=== PATIENT | female | born 1950 | race Caucasian/White ===

== ENCOUNTER 2016-11-02 13:06 | Emergency (ER) | payer MEDICARE, BC ==
[2016-11-02 13:20] VITALS: BP 185/94
--- NOTE | 2016-11-02 14:05 | ED.ADGEN ---
Past History Past Medical History: Diabetes, Hypertension, Other Past Surgical History: Angioplasty, Tubal ligation, Other Alcohol Use: None Drug Use: None Adult General Chief Complaint Chief Complaint Low back pain HPI HPI Patient is a 66-year-old female presents with history of chronic intermittent back pain who presents with persistent left lower back pain radiating to left medial thigh. Pain started gradually last night and has progressed. Pain is worse with palpation, trunk rotation and movement. Ibuprofen taken last night with limited relief. Denies injury. Review of Systems Review of Systems ROS as per HPI Physical Exam Physical Exam Constitutional: Well developed, well nourished, no acute distress, non-toxic appearance. Back: No midline back pain, tenderness or swelling. Lower lumbar paravertebral/ sacroiliac pain tenderness reproducing symptoms. Negative SLR tests. Neurologic: Lower extremities, no motor weakness or loss of sensation. Current Patient Data Vital Signs Vital Signs Date Time Temp Pulse Resp B/P (MAP) Pulse Ox O2 Delivery O2 Flow Rate FiO2 11/02/16 13:20 97.6 83 16 98 Room Air EKG EKG [] Radiology/Procedures Radiology/Procedures [] Course & Med Decision Making Course & Med Decision Making Pertinent Labs and Imaging studies reviewed. (See chart for details) [Reproducible musculoskeletal pain with radiculopathy. No motor sensory deficits. Pain addressed and improved. PCP f/u. ] Final Impression Final Impression [1. Acute lumbar radiculopathy] Problems: Dragon Disclaimer Dragon Disclaimer This electronic medical record was generated, in whole or in part, using a voice recognition dictation system. SUSI MONROE DO Nov 02, 2016 14:05
[2016-11-02] MEDS ORDERED: oxyCODONE/APAP 10/325 1 TAB TABLET PO ONE (14:15)
[2016-11-02] MEDS ORDERED: ONDANSETRON ODT 4 MG TAB.RAPDIS PO ONE (14:15)
[2016-11-02] MEDS ORDERED: IBUPROFEN 400 MG TABLET. PO ONE (14:15)
[2016-11-02] MEDS ORDERED: KETOROLAC 60 MG/2 ML VIAL. IM ONE (15:15)
== END 2016-11-02 15:44 | disposition home or self-care (01) ==
LOC: ER 13:06
DX: M54.16 Radiculopathy, lumbar region (principal); I10 Essential (primary) hypertension; E11.9 Type 2 diabetes mellitus without complications
CPT/HCPCS: 96372; 99284; J1885; Q0162

== ENCOUNTER 2017-06-09 12:38 | Inpatient (IN) | payer MEDICARE, BC ==
[2017-06-09] VITALS (9 sets, daily range): BP systolic 139–251; BP diastolic 63–117
[~2017-06-09] VITALS: Ht 160 cm; Wt 58.1 kg
--- NOTE | 2017-06-09 13:25 | RAD ---
CT head without contrast 06/09/2017 Clinical indication: Code stroke. Altered mental status. Comparison: None. Technique: Multiple CT images of the head were obtained without contrast PQRS Compliance Statement: One or more of the following individualized dose reduction techniques were utilized for this examination: 1. Automated exposure control 2. Adjustment of the mA and/or kV according to patient size 3. Use of iterative reconstruction technique Findings: There is mild prominence of the ventricles and subarachnoid spaces compatible with mild generalized cerebral atrophy. No midline shift. The basal cisterns are patent. No acute intracranial hemorrhage or extra-axial fluid collection. The mastoid air cells and visualized paranasal sinuses are well aerated. Impression: 1. No acute intracranial hemorrhage. 2. Mild generalized cerebral atrophy.
--- NOTE | 2017-06-09 13:26 | RAD ---
Single view chest 06/09/2017 Clinical indication: Altered mental status. Comparison: None. Findings: Cardiac and mediastinal silhouettes are unremarkable. Mild bibasilar atelectasis. No pleural effusion, pneumothorax or focal consolidation. There are surgical clips overlying the left lower neck level. Impression: Mild bibasilar atelectasis without evidence of CHF or consolidating pneumonia.
[2017-06-09 13:46] LABS: BASO % 1 % (0-3); EOS # 0.2 x10^3/uL (0.0-0.7); EOS % 3 % (0-3); HEMATOCRIT 45.9 % (36.0-47.0); HEMOGLOBIN 15.5 g/dL (12.0-15.5); LYMPH # 1.1 x10^3/uL (1.0-4.8); LYMPH % 20 % (24-48); MEAN CORPUSCULAR HEMOGLOBIN 31 pg (25-35); MEAN CORPUSCULAR HGB CONC 34 g/dL (31-37); MEAN CORPUSCULAR VOLUME 93 fL (79-100); MONO # 0.5 x10^3/uL (0.0-1.1); MONO % 9 % (0-9); NEUT # 3.7 x10^3uL (1.8-7.7); NEUT % 68 % (31-73); PLATELET COUNT 191 x10^3/uL (140-400); RED BLOOD COUNT 4.93 x10^6/uL (3.50-5.40); WHITE BLOOD COUNT 5.5 x10^3/uL (4.0-11.0)
[2017-06-09 13:53] LABS: ALBUMIN/GLOBULIN RATIO 1.1 (1.0-1.7); CREATININE 1.9 mg/dL (0.6-1.0); GFR 26.3; POTASSIUM 4.3 mmol/L (3.5-5.1); TOTAL BILIRUBIN 0.6 mg/dL (0.2-1.0); TOTAL PROTEIN 7.7 g/dL (6.4-8.2)
[2017-06-09] MEDS ORDERED: METOPROLOL TARTRATE 5 MG/5 ML VIAL. IV ONE ×2 (14:00→15:30)
--- NOTE | 2017-06-09 14:00 | EKG ---
[address] [address] Test Date: 2017-06-09 Test Time: 13:32:40 Pat Name: AUSTIN RAZA Department: Room: Gender: F Interlocking Pavement Installer: SULEMA : 1950 Requested By: SARA ARAUJO Order Number: [id number] Reading MD: Vitor Johnson Measurements Intervals Vanduser Rate: 73 P: 126 VT: 152 QRS: 98 QRSD: 98 T: 23 QT: 394 QTc: 438 Interpretive Statements SINUS RHYTHM RIGHTWARD AXIS Electronically Signed On 06-09-2017 16:53:22 MOTTLE LAY UP OPERATOR by Vitor Johnson
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
[2017-06-09] MEDS ORDERED: IV NORMAL SALINE 1,000ML 1,000 ML IV SCH (14:21)
[2017-06-09 14:44] LABS: AMPHETAMINE/METHAMPHETAMINE NEG (NEG); BARBITURATES NEG (NEG); BENZODIAZEPINES NEG (NEG); CANNABINOIDS NEG (NEG); COCAINE NEG (NEG); METHADONE NEG (NEG); OPIATES NEG (NEG); PHENCYCLIDINE NEG (NEG)
[2017-06-09] MEDS ORDERED: INSULIN REGULAR 100 UNIT/ML 10ML VIAL. IV ONE (14:45)
[2017-06-09] MEDS ORDERED: ONDANSETRON PF 4 MG/2 ML VIAL. IV ONE (15:45)
[2017-06-09] MEDS ORDERED: ACETAMINOPHEN 500 MG TABLET PO ONE (15:45)
[2017-06-09 15:46] LABS: BACTERIA,URINE 0 /HPF (0-FEW); BILIRUBIN,URINE NEG (NEG); CLARITY,URINE CLEAR; COLOR,URINE YELLOW; GLUCOSE,URINE 500 mg/dL (NEG); NITRITE,URINE NEG (NEG); RBC,URINE 0 /HPF (0-2); SQUAMOUS EPITHELIAL CELL,UR OCC /LPF; UROBILINOGEN,URINE 0.2 mg/dL (0.2 mg/dL); WBC,URINE OCC /HPF (0-4)
[2017-06-09] MEDS ORDERED: ONDANSETRON PF 4 MG/2 ML VIAL. IV PRN ×2 (16:45→18:15)
[2017-06-09] MEDS ORDERED: INSULIN REGULAR 150 UNIT in 0.9 % SODIUM CHLORIDE 150ML 150 ML IV ONE (17:00)
--- NOTE | 2017-06-09 18:26 | PDOC ---
Exam Note: Christiano Note: Please also refer to the separate dictated note~for this date of service dictated separately.~Patient seen individually. Discussed the patient with Nursing staff reviewed the chart.~Reviewed interim history and current functioning. Reviewed vital signs,~Labs/ Radiology~and current medications noted below. Continue current treatment with the changes noted in the dictated addendum note Assessment: Vital Signs: Vital Signs Date Time Temp Pulse Resp B/P (MAP) Pulse Ox O2 Delivery O2 Flow Rate FiO2 06/09/17 18:04 98.3 72 18 223/103 (143) 93 Room Air Labs: Laboratory Tests Test 06/09/17 13:18 06/09/17 14:20 06/09/17 16:59 06/09/17 18:19 White Blood Count 5.5 x10^3/uL (4.0-11.0) Red Blood Count 4.93 x10^6/uL (3.50-5.40) Hemoglobin 15.5 g/dL (12.0-15.5) Hematocrit 45.9 % (36.0-47.0) Mean Corpuscular Volume 93 fL (79-100) Mean Corpuscular Hemoglobin 31 pg (25-35) Mean Corpuscular Hemoglobin Concent 34 g/dL (31-37) Red Cell Distribution Width 14.0 % (11.5-14.5) Platelet Count 191 x10^3/uL (140-400) Neutrophils (%) (Auto) 68 % (31-73) Lymphocytes (%) (Auto) 20 % (24-48) L Monocytes (%) (Auto) 9 % (0-9) Eosinophils (%) (Auto) 3 % (0-3) Basophils (%) (Auto) 1 % (0-3) Neutrophils # (Auto) 3.7 x10^3uL (1.8-7.7) Lymphocytes # (Auto) 1.1 x10^3/uL (1.0-4.8) Monocytes # (Auto) 0.5 x10^3/uL (0.0-1.1) Eosinophils # (Auto) 0.2 x10^3/uL (0.0-0.7) Basophils # (Auto) 0.0 x10^3/uL (0.0-0.2) Prothrombin Time 10.1 SEC (9.4-11.4) Prothrombin Time INR 1.0 (0.9-1.1) PTT 21 SEC (23-33) L Sodium Level 132 mmol/L (136-145) L Potassium Level 4.3 mmol/L (3.5-5.1) Chloride Level 91 mmol/L (98-107) L Carbon Dioxide Level 31 mmol/L (21-32) Anion Gap 10 (6-14) Blood Urea Nitrogen 20 mg/dL (7-20) Creatinine 1.9 mg/dL (0.6-1.0) H Estimated GFR (Cockcroft-Gault) 26.3 BUN/Creatinine Ratio 11 (6-20) Glucose Level 767 mg/dL (70-99) *H Lactic Acid Level 1.8 mmol/L (0.4-2.0) Calcium Level 10.0 mg/dL (8.5-10.1) Total Bilirubin 0.6 mg/dL (0.2-1.0) Aspartate Amino Transferase (AST) 26 U/L (15-37) Alanine Aminotransferase (ALT) 48 U/L (14-59) Alkaline Phosphatase 204 U/L (46-116) H Ammonia < 10 mcmol/L (11-34) L Creatine Kinase 44 U/L (26-192) Troponin I Quantitative 0.028 ng/mL (0-0.055) Total Protein 7.7 g/dL (6.4-8.2) Albumin 4.0 g/dL (3.4-5.0) Albumin/Globulin Ratio 1.1 (1.0-1.7) Ethyl Alcohol Level < 10 mg/dL (0-10) Urine Collection Type Unknown Urine Color Yellow Urine Clarity Clear Urine pH 7.0 Urine Specific Magnet 1.015 Urine Protein 30 mg/dl (NEG-TRACE) Urine Glucose (UA) 500 mg/dL (NEG) Urine Ketones (Stick) Neg mg/dL (NEG) Urine Blood Neg (NEG) Urine Nitrite Neg (NEG) Urine Bilirubin Neg (NEG) Urine Urobilinogen Dipstick 0.2 mg/dL (0.2 mg/dL) Urine Leukocyte Esterase Neg (NEG) Urine RBC 0 /HPF (0-2) Urine WBC Occ /HPF (0-4) Urine Squamous Epithelial Cells Occ /LPF Urine Bacteria 0 /HPF (0-FEW) Urine Opiates Screen Neg (NEG) Urine Methadone Screen Neg (NEG) Urine Barbiturates Neg (NEG) Urine Phencyclidine Screen Neg (NEG) Urine Amphetamine/Methamphetamine Neg (NEG) Urine Benzodiazepines Screen Neg (NEG) Urine Cocaine Screen Neg (NEG) Urine Cannabinoids Screen Neg (NEG) Urine Ethyl Alcohol Neg (NEG) Glucose (Fingerstick) 430 mg/dL (70-99) H 372 mg/dL (70-99) H Current Medications: Meds: Current Medications Metoprolol Tartrate (Lopressor Vial) 5 mg 1X ONCE IV Last administered on 06/09at 14:15; Start 06/09/17 at 14:00; Stop 06/09/17 at 14:01; Status DC Sodium Chloride 1,000 ml @ 1,000 mls/hr Q1H IV Last administered on 06/09/17at 15:44; Start 06/09/17 at 14:21; Stop 06/09/17 at 15:20; Status DC Insulin Human Regular (NovoLIN R) 20 unit 1X ONCE IV Last administered on 06/09at 15:45; Start 06/09/17 at 14:45; Stop 06/09/17 at 14:46; Status DC Metoprolol Tartrate (Lopressor Vial) 5 mg 1X ONCE IV Last administered on 06/09at 15:43; Start 06/09/17 at 15:30; Stop 06/09/17 at 15:31; Status DC Ondansetron HCl (Zofran) 4 mg 1X ONCE IV Last administered on 06/09/17at 16:03 ; Start 06/09/17 at 15:45; Stop 06/09/17 at 15:46; Status DC Acetaminophen (Tylenol) 1,000 mg 1X ONCE PO Last administered on 06/09/17at 16: 03; Start 06/09/17 at 15:45; Stop 06/09/17 at 15:46; Status DC Insulin Human Regular 150 unit/ Sodium Chloride 151.5 ml @ 0 mls/hr 1X ONCE IV ; Start 06/09/17 at 17:00; Stop 06/09/17 at 17:01; Status DC Ondansetron HCl (Zofran) 4 mg PRN Q4HRS PRN IV NAUSEA/VOMITING; Start 06/09/17 at 16:45; Stop 06/09/17 at 18:24; Status DC Ondansetron HCl (Zofran) 4 mg PRN Q8HRS PRN IV NAUSEA/VOMITING; Start 06/09/17 at 18:15 Sodium Chloride 1,000 ml @ 0 mls/hr Q0M IV ; Start 06/09/17 at 18:03 Metoprolol Tartrate (Lopressor Vial) 5 mg Q6HRS IV ; Start 06/09/17 at 18:30 Nicardipine HCl 50 mg/Sodium Chloride 270 ml @ 0 mls/hr CONT PRN IV SEE I/O RECORD; Start 06/09/17 at 18:15 I have reviewed the current psychotropics carefully including drug interactions. Risk benefit ratio favors no change other than as noted in my dictated progress note. Diagnosis: Problems: (1) Mild cognitive impairment (2) Anxiety disorder JORGE SLATER MD Jun 09, 2017 18:26
[2017-06-09] MEDS: IV NORMAL SALINE 1,000ML 1,000 ML IV SCH ×2 (18:33→20:30)
[2017-06-09] MEDS: METOPROLOL TARTRATE 5 MG/5 ML VIAL. IV SCH (18:33)
[2017-06-09] MEDS ORDERED: LORazepam 2 MG/ML VIAL ONE (20:13)
[2017-06-09] MEDS ORDERED: LORazepam 2 MG/ML VIAL IV PRN (20:45)
[2017-06-10] VITALS (24 sets, daily range): BP systolic 114–175; BP diastolic 55–86
[2017-06-10] MEDS: METOPROLOL TARTRATE 5 MG/5 ML VIAL. IV SCH ×5 (00:09→18:47)
[2017-06-10] MEDS: IV NORMAL SALINE 1,000ML 1,000 ML IV SCH (00:09)
[2017-06-10] MEDS: IV DEXTROSE 5 %-0.45 % NACL 1,000 ML IV SCH ×4 (02:49→18:39)
[2017-06-10 06:20] LABS: BASO % 0 % (0-3); EOS % 0 % (0-3); HEMATOCRIT 43.8 % (36.0-47.0); HEMOGLOBIN 14.9 g/dL (12.0-15.5); LYMPH # 0.8 x10^3/uL (1.0-4.8); LYMPH % 7 % (24-48); MEAN CORPUSCULAR HEMOGLOBIN 31 pg (25-35); MEAN CORPUSCULAR HGB CONC 34 g/dL (31-37); MEAN CORPUSCULAR VOLUME 92 fL (79-100); MONO # 0.5 x10^3/uL (0.0-1.1); MONO % 4 % (0-9); NEUT # 10.2 x10^3uL (1.8-7.7); NEUT % 89 % (31-73); PLATELET COUNT 181 x10^3/uL (140-400); RED BLOOD COUNT 4.78 x10^6/uL (3.50-5.40); RED CELL DISTRIBUTION WIDTH 14.4 % (11.5-14.5); WHITE BLOOD COUNT 11.5 x10^3/uL (4.0-11.0)
[2017-06-10 06:30] LABS: ALBUMIN 3.6 g/dL (3.4-5.0); ALBUMIN/GLOBULIN RATIO 1.1 (1.0-1.7); CALCIUM 8.9 mg/dL (8.5-10.1); CREATININE 1.5 mg/dL (0.6-1.0); GFR 34.5; MAGNESIUM 1.6 mg/dL (1.8-2.4); POTASSIUM 3.6 mmol/L (3.5-5.1); TOTAL BILIRUBIN 0.5 mg/dL (0.2-1.0)
[2017-06-10] MEDS ORDERED: KETOROLAC 30 MG/ML VIAL. IV PRN (07:15)
[2017-06-10] MEDS ORDERED: MAGNESIUM SULFATE 2GM 50 ML IV ONE (07:45)
[2017-06-10] MEDS ORDERED: ACETAMINOPHEN 650 MG SUPP.RECT. PR ONE (10:00)
--- NOTE | 2017-06-10 12:27 | RAD ---
CT of the head without contrast, 06/10/2017: History: Altered mental status The patient became combative when placed on the CT table. The study is therefore compromised by patient motion artifacts. Comparison is made to a study from 06/09/2017. The ventricles are within normal limits in size. There is no shift of the midline structures. There is no evidence of acute intracranial hemorrhage or mass effect. There is mild cerebral atrophy. IMPRESSION: Limited exam demonstrating no acute intracranial abnormality. PQRS Compliance Statement: One or more of the following individualized dose reduction techniques were utilized for this examination: 1. Automated exposure control 2. Adjustment of the mA and/or kV according to patient size 3. Use of iterative reconstruction technique
--- NOTE | 2017-06-10 12:33 | RAD ---
CT of the chest without contrast, 06/10/2017: History: Leukocytosis. Noncontrast scans were obtained. The study is compromised by patient motion artifact. Minimal peripheral opacities in both lower lobes are compatible with dependent atelectasis. There is a calcified granuloma in the right upper lobe medially. No pulmonary mass or dense consolidation is seen. There is moderate calcific plaquing of the thoracic aorta without evidence of aneurysm. Scattered coronary artery calcifications are present. The heart is not enlarged. No mediastinal adenopathy is seen. The liver is of lower than normal density suggesting fatty change. IMPRESSION: 1. Mild dependent atelectasis in both lungs. 2. Calcific plaquing of the aorta and coronary arteries. 3. Hepatic steatosis PQRS Compliance Statement: One or more of the following individualized dose reduction techniques were utilized for this examination: 1. Automated exposure control 2. Adjustment of the mA and/or kV according to patient size 3. Use of iterative reconstruction technique
[2017-06-10 13:09] LABS: INFLUENZA A PATIENT NEGATIVE (NEGATIVE); INFLUENZA B PATIENT NEGATIVE (NEGATIVE)
[2017-06-10 13:34] LABS: FREE T4 1.21 ng/dL (0.76-1.46); THYROID STIM HORMONE (TSH) 0.974 uIU/mL (0.358-3.740)
[2017-06-10 14:08] LABS: BASO % 1 % (0-3); EOS % 0 % (0-3); HEMOGLOBIN 14.4 g/dL (12.0-15.5); LYMPH # 1.2 x10^3/uL (1.0-4.8); LYMPH % 12 % (24-48); MEAN CORPUSCULAR HEMOGLOBIN 31 pg (25-35); MEAN CORPUSCULAR HGB CONC 34 g/dL (31-37); MEAN CORPUSCULAR VOLUME 91 fL (79-100); MONO % 10 % (0-9); NEUT # 8.4 x10^3uL (1.8-7.7); NEUT % 78 % (31-73); PLATELET COUNT 179 x10^3/uL (140-400); RED BLOOD COUNT 4.64 x10^6/uL (3.50-5.40); RED CELL DISTRIBUTION WIDTH 14.2 % (11.5-14.5); WHITE BLOOD COUNT 10.7 x10^3/uL (4.0-11.0)
[2017-06-10] MEDS ORDERED: INSULIN REGULAR 150 UNIT in 0.9 % SODIUM CHLORIDE 150ML 150 ML IV PRN (14:15)
[2017-06-10 14:20] LABS: ALBUMIN 3.1 g/dL (3.4-5.0); ALBUMIN/GLOBULIN RATIO 0.9 (1.0-1.7); CALCIUM 8.8 mg/dL (8.5-10.1); CREATININE 1.6 mg/dL (0.6-1.0); GFR 32.1; TOTAL BILIRUBIN 0.5 mg/dL (0.2-1.0); TOTAL PROTEIN 6.4 g/dL (6.4-8.2)
[2017-06-10] MEDS: POTASSIUM CHLORIDE 10MEQ 100 ML IV SCH ×4 (15:21→18:18)
[2017-06-10] MEDS ORDERED: PIPERACILLIN/TAZO IV Push 2.25 GM VIAL. IVP SCH (18:00)
[2017-06-10] MEDS ORDERED: PIPERACILLIN/TAZOBACTAM 2.25 GM in IV NORMAL SALINE 50ML 50 ML IV SCH (18:00)
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
--- NOTE | 2017-06-11 23:54 | PN ---
DATE: 06/10/2017 This is a late entry for 06/10/2017 covers elements not covered in my initial note of 06/10/2017. SUBJECTIVE: The patient seen in ICU bed for evening of 06/10/2017. Discussed with nursing staff. The patient has been relatively nonresponsive and question is whether she has had a CVA. Dr. Albrecht is following her. REVIEW OF SYSTEMS: From a psychiatric standpoint, there is nothing specific to address and it seems more that the medical issues needs to be addressed including possibility of CVA. IMPRESSION: Unchanged from initial note. PLAN: No recommendations from a psychiatric standpoint. MAN Clover SLATER MD DR: TICO/kirstin JOB#: [id number] / [id number]
--- NOTE | 2017-06-25 22:17 | DS ---
DATE OF DISCHARGE: 06/10/2017 HOSPITAL COURSE: The patient is a 66-year-old female patient who is followed by Dr. Lilly and who apparently was seen in his office where she was found to be extremely hypertensive with the blood pressure of 240/110. She was also confused and markedly hyperglycemic and therefore, she was taken to the ER by the wheelchair accompanied by [employer]. There, they noted that she was confused, unable to follow commands. Her blood pressure was 240/110. Her blood sugar was more than 800 mg. She was given 5 mg of IV metoprolol twice and her blood pressure came down to 140/90. By the time she arrived to the ICU, she was very restless, agitated with the blood pressure of 210/104. She was basically given Ativan and was started on Cardene drip as well as insulin drip for she was in hyperosmolar nonketotic hyperglycemia. Unfortunately, on the second day, the patient became completely unresponsive and although her blood pressure was much better controlled, her blood sugar was much better controlled, and a decision was made to transfer her to [facility] as the CT scan done at [facility] showed no obvious abnormality and on the day of discharge the patient was continued to be encephalopathic. PHYSICAL EXAMINATION: GENERAL: On the day of discharge, the patient was resting slightly propped up in bed, clearly encephalopathic. She was pale, no jaundice, cyanosis, or thyromegaly. No jugular venous distension. No limb edema. VITAL SIGNS: Her heart rate was 80, blood pressure was 155/67, temperature was 100.3, respiratory rate was 18 and oxygen saturation was 99% on 2 liters of oxygen. HEAD, EYES, EARS, NOSE AND THROAT: Showed normocephalic, atraumatic. NECK: Supple. HEART: Showed normal first and second heart sounds with no gallop, rub, or murmur. CHEST: Clear to auscultation. No crepitation or rhonchi. ABDOMEN: Distended, soft, nontender. No guarding or rigidity. No organomegaly. Hernial orifice is intact. Bowel sounds normal. NEUROLOGIC: She was very lethargic, but arousable. She clearly has difficulty moving her left upper and left lower extremity. LABORATORY DATA: Her lab work on day of discharge showed a white cell count of 10,700, hemoglobin 14.4, hematocrit 42, MCV 91, and platelet count of 179,000. Her chemistry showed that her serum sodium was 139, potassium 3, chloride 103, bicarbonate 24, anion gap of 12, BUN 12, creatinine 1.6, estimated GFR was 32 mL per minute. Her glucose was 174, calcium was 8.8. Total bilirubin, AST, ALT, alkaline phosphatase were normal. Her total protein was 6.4, albumin was 3.1. Her prothrombin time was 10, INR 1, aPTT 21. We went actually blood and urine for culture and sensitivity. These cultures were negative; however, the patient was started on Zosyn and arrangement has been made for her to be admitted to [facility] ICU to arrange for an MRI of the brain as well and to consult the neurology team as she seemed to have right middle cerebral artery territory infarct with left side hemiplegia, hypertensive encephalopathy, hypertensive urgency, and hyperosmolar nonketotic hyperglycemia. She did have left carotid artery stenosis and she underwent carotid artery endarterectomy in 2004 and 2015. ALISON WEBER MD DR: MOOK/kirstin JOB#: [id number] / [id number]
== END 2017-06-10 20:30 | disposition short-term general hospital (02) | DRG 77 ==
LOC: ER 12:38 → ICU 16:50
PROVIDERS: ADMIT Internal Medicine; ATTEND Internal Medicine
DX: I67.4 Hypertensive encephalopathy (principal); E11.00 Type 2 diabetes mellitus with hyperosmolarity without nonketotic hyperglycemic-hyperosmolar coma (NKHHC); E11.22 Type 2 diabetes mellitus with diabetic chronic kidney disease; F01.50 Vascular dementia, unspecified severity, without behavioral disturbance, psychotic disturbance, mood disturbance, and anxiety; E11.65 Type 2 diabetes mellitus with hyperglycemia; I12.9 Hypertensive chronic kidney disease with stage 1 through stage 4 chronic kidney disease, or unspecified chronic kidney disease; I25.10 Atherosclerotic heart disease of native coronary artery without angina pectoris; E78.5 Hyperlipidemia, unspecified; N18.9 Chronic kidney disease, unspecified; F41.9 Anxiety disorder, unspecified; F32.9 Major depressive disorder, single episode, unspecified; G89.29 Other chronic pain; Z79.82 Long term (current) use of aspirin; Z98.51 Tubal ligation status; Z87.891 Personal history of nicotine dependence; Z95.5 Presence of coronary angioplasty implant and graft
CPT/HCPCS: 36415; 70450; 71045; 71250; 80053; 80307; 81001; 82140; 82550; 82947; 83605; 83735; 84439; 84443; 84481; 84484; 85025; 85610; 85730; 87040; 87641; 87804; 93005; 96361; 96374; 96375; 96376; G0480; J1815; J1885; J2060; J2405; J2543; J3475; J3480; J3490; J7050; 99285-25; G0479; J7030

== ENCOUNTER 2017-06-20 18:56 | Inpatient (IN) | payer MEDICARE, BC ==
[~2017-06-20] VITALS: Ht 160 cm; Wt 68.9 kg
--- NOTE | 2017-06-20 19:14 | ED.ADGEN ---
Past History Past Medical History: Diabetes, Hypertension, Other Past Surgical History: Angioplasty, Tubal ligation, Other Alcohol Use: None Drug Use: None Adult General Chief Complaint Chief Complaint " She was here the other day and got transferred to [place] for bad UTI... she got discharge 3 days ago.. but now she is confused and not doing any better..." ( ) [facility] HPI Patient is a 66 year old female who presents with above hx and complaints. Pt still having fevers, recent fall, mental status changes. Has been compliant with Amoxicillin. Pt. follows with Dr. Shields. Initial INH [address] ordered. Pt. does have contusion to Rt. forehead- from fall two days ago. CT= CVA acute vs subacute [facility] distribution 1999- No bleed. Most likely not candidate for TPA time of onset symptoms. There is some suggestion that she had these symptoms on previous [place] admit. . Discussed presentation testing and tx. plan with Dr. Albrecht 2014. Discussed presentation, testing and tx. plan with Dr. Hernández 2024 Review of Systems Review of Systems Pt. poor historian Constitutional: Denies fever or chills [] Eyes: Denies change in visual acuity, redness, or eye pain [] HENT: Denies nasal congestion or sore throat [] Respiratory: Denies cough or shortness of breath [] Cardiovascular: No additional information not addressed in HPI [] GI: Denies abdominal pain, nausea, vomiting, bloody stools or diarrhea [] : Denies dysuria or hematuria [] Musculoskeletal: Denies back pain or joint pain [] Integument: Denies rash or skin lesions [] Neurologic: Denies headache, focal weakness or sensory changes [] Endocrine: Denies polyuria or polydipsia [] All other systems were reviewed and found to be within normal limits, except as documented in this note. Family History Family History Noncontributory Current Medications Current Medications Current Medications Medications (Trade) Dose Ordered Sig/Amanda Start Time Stop Time Status Last Admin Dose Admin Acetaminophen (Tylenol) 1,000 mg 1X ONCE 06/20/17 20:00 06/20/17 20:11 DC 06/20/17 20:00 1,000 MG Ceftriaxone Sodium 1 gm/ Sodium Chloride 50 ml @ 100 mls/hr 1X ONCE 06/20/17 19:30 06/20/17 19:59 DC 06/20/17 20:15 100 MLS/HR Ceftriaxone Sodium (Rocephin) 1 gm STK-MED ONCE 06/20/17 19:56 06/20/17 19:57 DC Sodium Chloride 50 ml @ As Directed STK-MED ONCE 06/20/17 19:56 06/20/17 19:57 DC Vancomycin HCl 1 gm STK-MED ONCE 06/20/17 19:56 06/20/17 19:57 DC Vancomycin HCl 1 gm/Sodium Chloride 250 ml @ 250 mls/hr 1X ONCE 06/20/17 20:00 06/20/17 20:59 DC 06/20/17 20:12 250 MLS/HR See Nursing for home meds Allergies Allergies Sulfa Physical Exam Physical Exam Constitutional:mild distress, non-toxic appearance. [] HENT: Normocephalic, atraumatic, bilateral external ears normal, oropharynx moist, no oral exudates, nose normal. Contusion Rt forehead. Eyes: PERRLA, EOMI, conjunctiva normal, no discharge. [] Neck: Normal range of motion, no tenderness, supple, no stridor. [] Cardiovascular:Tachycardia Heart rate regular rhythm, no murmur [] Lungs & Thorax: Bilateral breath sounds equal at apex on auscultation [] Abdomen: Bowel sounds normal, soft, no tenderness, no masses, no pulsatile masses. Old scar. Skin: Warm, dry, no erythema, no rash. [] Back: No tenderness, no CVA tenderness. [] Extremities: No tenderness, no cyanosis, no clubbing, ROM intact, no edema. [] Neurologic: Alert and oriented X 3,but appears confused, and slow to respond to questions. normal motor function, normal sensory function, some very slight weakness of Lt arm and leg or fatigues before the Rt side. . Patient was noted abnormal signing of admission to treat and Education slip... Pt. wrote "Ramu Guallpa Van, Van, Van, Van, Ramu Guallpa Van, Vandruff "as if broken or skipping record with this activity. See example in chart. Psychologic: Affect flat, mood depressed. Current Patient Data Lab Results Laboratory Tests Test 06/20/17 19:00 06/20/17 19:14 06/20/17 19:15 White Blood Count 3.8 x10^3/uL (4.0-11.0) L Red Blood Count 4.61 x10^6/uL (3.50-5.40) Hemoglobin 14.5 g/dL (12.0-15.5) Hematocrit 41.7 % (36.0-47.0) Mean Corpuscular Volume 91 fL (79-100) Mean Corpuscular Hemoglobin 32 pg (25-35) Mean Corpuscular Hemoglobin Concent 35 g/dL (31-37) Red Cell Distribution Width 14.0 % (11.5-14.5) Platelet Count 206 x10^3/uL (140-400) Neutrophils (%) (Auto) 52 % (31-73) Lymphocytes (%) (Auto) 23 % (24-48) L Monocytes (%) (Auto) 24 % (0-9) H Eosinophils (%) (Auto) 0 % (0-3) Basophils (%) (Auto) 1 % (0-3) Neutrophils # (Auto) 2.0 x10^3uL (1.8-7.7) Lymphocytes # (Auto) 0.9 x10^3/uL (1.0-4.8) L Monocytes # (Auto) 0.9 x10^3/uL (0.0-1.1) Eosinophils # (Auto) 0.0 x10^3/uL (0.0-0.7) Basophils # (Auto) 0.0 x10^3/uL (0.0-0.2) Prothrombin Time 11.4 SEC (9.4-11.4) Prothrombin Time INR 1.1 (0.9-1.1) PTT < 21 SEC (23-33) L Sodium Level 134 mmol/L (136-145) L Potassium Level 4.3 mmol/L (3.5-5.1) Chloride Level 96 mmol/L (98-107) L Carbon Dioxide Level 28 mmol/L (21-32) Anion Gap 10 (6-14) Blood Urea Nitrogen 17 mg/dL (7-20) Creatinine 1.5 mg/dL (0.6-1.0) H Estimated GFR (Cockcroft-Gault) 34.5 Glucose Level 204 mg/dL (70-99) H Lactic Acid Level 1.3 mmol/L (0.4-2.0) Calcium Level 9.4 mg/dL (8.5-10.1) Magnesium Level 1.9 mg/dL (1.8-2.4) Total Bilirubin 0.4 mg/dL (0.2-1.0) Direct Bilirubin 0.2 mg/dL (0.0-0.2) Aspartate Amino Transferase (AST) 38 U/L (15-37) H Alanine Aminotransferase (ALT) 43 U/L (14-59) Alkaline Phosphatase 146 U/L (46-116) H Troponin I Quantitative 0.029 ng/mL (0-0.055) Total Protein 6.9 g/dL (6.4-8.2) Albumin 3.5 g/dL (3.4-5.0) Lipase 225 U/L (73-393) Ethyl Alcohol Level < 10 mg/dL (0-10) Influenza Type A (Rapid) Negative (NEGATIVE) Influenza Type B (Rapid) Negative (NEGATIVE) Urine Collection Type Unknown Urine Color Yellow Urine Clarity Clear Urine pH 5.0 Urine Specific Pearl >=1.030 Urine Protein >100 mg/dl (NEG-TRACE) Urine Glucose (UA) Neg mg/dL (NEG) Urine Ketones (Stick) 15 mg/dL (NEG) Urine Blood Neg (NEG) Urine Nitrite Neg (NEG) Urine Bilirubin Neg (NEG) Urine Urobilinogen Dipstick 0.2 mg/dL (0.2 mg/dL) Urine Leukocyte Esterase Neg (NEG) Urine RBC 1-2 /HPF (0-2) Urine WBC 1-4 /HPF (0-4) Urine Squamous Epithelial Cells Many /LPF Urine Bacteria Few /HPF (0-FEW) Urine Hyaline Casts Mod /HPF Urine Mucus Mod /LPF Urine Yeast Present /HPF Urine Opiates Screen Neg (NEG) Urine Methadone Screen Neg (NEG) Urine Barbiturates Neg (NEG) Urine Phencyclidine Screen Neg (NEG) Urine Amphetamine/Methamphetamine Neg (NEG) Urine Benzodiazepines Screen Neg (NEG) Urine Cocaine Screen Neg (NEG) Urine Cannabinoids Screen Neg (NEG) Urine Ethyl Alcohol Neg (NEG) EKG EKG My interpretation of EKG shows a sinus tachycardia around 5 bpm. There is some anterior septal changes. But no findings acute STEMI with contralateral changes. [] Radiology/Procedures Radiology/Procedures My interpretation of chest x-ray shows no acute cardiopulmonary findings. Some mild degenerative changes. CT shows findings of acute vs sub acute Rt. Frontal CVA of Rt MCA. [] MRI of brain on 06/11/17 = No acute intracranial finding, chronic lacunar Lt thalamus. Course & Med Decision Making Course & Med Decision Making Pertinent Labs and Imaging studies reviewed. (See chart for details) Discussed presentation, testing and treatment plan with neurology and Dr. Hernández. Will admit for further eval. Possible PT. Critical care: - 90 min. Final Impression Final Impression 1. Mental status change[] 2. CVA - [facility] distributional acute versus subacute 3. Fever 4. Elevated AST and alkaline phosphatase 5. Diabetes 6. Elevated creatinine 7. Dehydration Problems: Dragon Disclaimer Dragon Disclaimer This electronic medical record was generated, in whole or in part, using a voice recognition dictation system. DAIANA MUSA MD Jun 20, 2017 19:14
[2017-06-20] MEDS ORDERED: IV NORMAL SALINE 1,000ML 1,000 ML IV SCH (19:30)
[2017-06-20 19:44] LABS: BASO % 1 % (0-3); EOS % 0 % (0-3); HEMATOCRIT 41.7 % (36.0-47.0); HEMOGLOBIN 14.5 g/dL (12.0-15.5); LYMPH # 0.9 x10^3/uL (1.0-4.8); LYMPH % 23 % (24-48); MEAN CORPUSCULAR HEMOGLOBIN 32 pg (25-35); MEAN CORPUSCULAR HGB CONC 35 g/dL (31-37); MEAN CORPUSCULAR VOLUME 91 fL (79-100); MONO # 0.9 x10^3/uL (0.0-1.1); MONO % 24 % (0-9); NEUT % 52 % (31-73); PLATELET COUNT 206 x10^3/uL (140-400); RED BLOOD COUNT 4.61 x10^6/uL (3.50-5.40); WHITE BLOOD COUNT 3.8 x10^3/uL (4.0-11.0)
--- NOTE | 2017-06-20 19:49 | EKG ---
[address] [address] Test Date: 2017-06-20 Test Time: 19:46:51 Pat Name: AUSTIN RAZA Department: Room: Gender: F [employer]ist: [employer] : [id number] Requested By: DAIANA MUSA Order Number: [id number] Reading MD: Xiang Pham MD Measurements Intervals [place] Rate: 105 P: 54 WV: 146 QRS: 23 QRSD: 90 T: 8 QT: 342 QTc: 456 Interpretive Statements SINUS TACHYCARDIA Electronically Signed On 06-23-2017 17:23:00 LICENSED MORTICIAN by Xiang Pham MD
[2017-06-20 19:52] LABS: AMPHETAMINE/METHAMPHETAMINE NEG (NEG); BARBITURATES NEG (NEG); BENZODIAZEPINES NEG (NEG); CANNABINOIDS NEG (NEG); COCAINE NEG (NEG); METHADONE NEG (NEG); OPIATES NEG (NEG); PHENCYCLIDINE NEG (NEG)
[2017-06-20] MEDS ORDERED: IV NORMAL SALINE 250ML 250 ML ONE (19:56)
[2017-06-20] MEDS ORDERED: IV NORMAL SALINE 50ML 50 ML ONE (19:56)
[2017-06-20] MEDS ORDERED: cefTRIAXone SODIUM 1 GM VIAL IV ONE (19:56)
[2017-06-20] MEDS ORDERED: VANCOMYCIN 1 GM VIAL. ONE (19:56)
[2017-06-20] MEDS ORDERED: ACETAMINOPHEN 500 MG TABLET PO ONE ×2 (19:58→20:00)
[2017-06-20] MEDS ORDERED: VANCOMYCIN 1 GM in IV NORMAL SALINE 250ML 250 ML IV ONE (20:00)
[2017-06-20 20:02] LABS: INFLUENZA A PATIENT NEGATIVE (NEGATIVE); INFLUENZA B PATIENT NEGATIVE (NEGATIVE)
[2017-06-20 20:02] LABS: BILIRUBIN,URINE NEG (NEG); CLARITY,URINE CLEAR; COLOR,URINE YELLOW; GLUCOSE,URINE NEG (NEG); NITRITE,URINE NEG (NEG); UROBILINOGEN,URINE 0.2 mg/dL (0.2 mg/dL)
[2017-06-20 20:03] LABS: ALBUMIN 3.5 g/dL (3.4-5.0); CALCIUM 9.4 mg/dL (8.5-10.1); CREATININE 1.5 mg/dL (0.6-1.0); DIRECT BILIRUBIN 0.2 mg/dL (0.0-0.2); GFR 34.5; MAGNESIUM 1.9 mg/dL (1.8-2.4); POTASSIUM 4.3 mmol/L (3.5-5.1); TOTAL BILIRUBIN 0.4 mg/dL (0.2-1.0); TOTAL PROTEIN 6.9 g/dL (6.4-8.2)
[2017-06-20 20:04] LABS: BACTERIA,URINE FEW /HPF (0-FEW); HYALINE CASTS, URINE MOD /HPF; SQUAMOUS EPITHELIAL CELL,UR MANY /LPF; YEAST,URINE PRESENT /HPF
--- NOTE | 2017-06-20 20:11 | RAD ---
PQRS Compliance Statement: One or more of the following individualized dose reduction techniques were utilized for this examination: 1. Automated exposure control 2. Adjustment of the mA and/or kV according to patient size 3. Use of iterative reconstruction technique CT head without contrast 06/20/2017 7:31 PM INDICATION: Fall COMPARISON: CT head June 10, 2017 TECHNIQUE: Multiple axial CT images of the head were obtained from skull base through the vertex without intravenous contrast. FINDINGS: Head: There is loss of marshall-white matter differentiation with edema involving the right frontal operculum and right insula compatible with an acute to subacute infarct. These findings are new from the prior examination from June 10, 2017. Ventricles, sulci and basal cisterns are within normal limits. There is no hydrocephalus. There is no acute intracranial hemorrhage. There is no mass, mass effect or midline shift. Posterior fossa is normal in appearance. Visualized portions of the orbits are normal. Paranasal sinuses are well aerated. Mastoid air cells are well aerated. Scalp and calvaria are normal. IMPRESSION: Acute to subacute infarct in the right middle cerebral artery territory involving the right frontal operculum and right insula. Aspects score: 9 Electronically signed by: Elizabeth Huitron MD (06/20/2017 8:07 PM) [facility]
[2017-06-20] MEDS ORDERED: ONDANSETRON PF 4 MG/2 ML VIAL. IV PRN (20:45)
[2017-06-20] MEDS ORDERED: ENOXAPARIN ** NOTE DOSE ** SYRINGE SQ ONE ×2 (20:45)
[2017-06-20] MEDS ORDERED: ASPIRIN 325 MG TABLET PO ONE (20:45)
[2017-06-20] MEDS ORDERED: IV NORMAL SALINE 1,000ML 1,000 ML IV ONE (21:00)
[2017-06-20 23:15] VITALS: BP 150/82
[2017-06-21] VITALS (24 sets, daily range): BP systolic 117–185; BP diastolic 67–110
[2017-06-21] MEDS ORDERED: INSU100I13 SQ (05:49)
[2017-06-21] MEDS ORDERED: INSU100V SQ (05:49)
[2017-06-21] MEDS ORDERED: HYDR100T24 PO (05:49)
[2017-06-21] MEDS ORDERED: METO100T7 PO (05:49)
[2017-06-21 08:20] LABS: BASO # 0.1 x10^3/uL (0.0-0.2); BASO % 3 % (0-3); EOS # 0.1 x10^3/uL (0.0-0.7); EOS % 3 % (0-3); HEMATOCRIT 39.7 % (36.0-47.0); HEMOGLOBIN 13.6 g/dL (12.0-15.5); LYMPH # 0.7 x10^3/uL (1.0-4.8); LYMPH % 25 % (24-48); MEAN CORPUSCULAR HEMOGLOBIN 32 pg (25-35); MEAN CORPUSCULAR HGB CONC 34 g/dL (31-37); MEAN CORPUSCULAR VOLUME 93 fL (79-100); MONO # 0.7 x10^3/uL (0.0-1.1); MONO % 26 % (0-9); NEUT # 1.2 x10^3uL (1.8-7.7); NEUT % 42 % (31-73); PLATELET COUNT 204 x10^3/uL (140-400); RED BLOOD COUNT 4.29 x10^6/uL (3.50-5.40); RED CELL DISTRIBUTION WIDTH 13.4 % (11.5-14.5); WHITE BLOOD COUNT 2.8 x10^3/uL (4.0-11.0)
[2017-06-21 08:34] LABS: CALCIUM 8.7 mg/dL (8.5-10.1); CREATININE 1.3 mg/dL (0.6-1.0); GFR 40.7; POTASSIUM 3.5 mmol/L (3.5-5.1)
[2017-06-21] MEDS: LACTOBACILLUS RHAMNOSUS GG 1 CAPSULE. PO SCH ×2 (08:52→20:08)
--- NOTE | 2017-06-21 08:53 | RAD ---
Indication: Dyspnea and weakness. Technique: Upright portable chest radiograph was obtained. Film was repeated. Comparison is from June 09, 2017. Findings: The lungs are clear. The cardiopulmonary silhouette is within normal limits. The bony structures are intact. There are clips in the soft tissues of the neck on the left. Impression: No active pulmonary disease.
[2017-06-21] MEDS: METOPROLOL TART IMMED RELEASE 50 MG TABLET PO SCH ×2 (08:54→20:09)
[2017-06-21] MEDS ORDERED: ASPIRIN 81 MG TAB.CHEW PO SCH (09:00)
[2017-06-21] MEDS ORDERED: DEXTROSE 50% 25 GM / 50ML DISP.SYRIN. IV PRN (10:45)
[2017-06-21] MEDS ORDERED: NON FORMULARY ITEM (Insulin Lispro (Humalog) 1 UNIT) SQ SCH (11:30)
[2017-06-21] MEDS: ENOXAPARIN 30 MG/0.3 ML DISP.SYRIN. SQ SCH (12:20)
[2017-06-21] MEDS: INSULIN ASPART 300 UNITS/3 ML INSULN.PEN SQ SCH ×3 (12:25→20:57)
[2017-06-21] MEDS ORDERED: FLUCONAZOLE 100 MG TABLET. PO ONE (16:00)
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
[2017-06-21] MEDS ORDERED: cefTRIAXone IV Push 1 GM VIAL. IVP SCH (20:00)
[2017-06-21] MEDS: INSULIN DETEMIR 300 UNITS/3 ML INSULN.PEN. SQ SCH (20:56)
[2017-06-21] MEDS ORDERED: ACETAMINOPHEN 500 MG TABLET PO PRN (21:15)
[2017-06-22] VITALS (17 sets, daily range): BP systolic 116–186; BP diastolic 60–92
[2017-06-22] MEDS: INSULIN ASPART 300 UNITS/3 ML INSULN.PEN SQ SCH ×4 (07:30→20:52)
[2017-06-22] MEDS: ASPIRIN 325 MG TABLET PO SCH (07:52)
[2017-06-22] MEDS: LACTOBACILLUS RHAMNOSUS GG 1 CAPSULE. PO SCH ×2 (07:53→19:29)
[2017-06-22] MEDS: ENOXAPARIN 30 MG/0.3 ML DISP.SYRIN. SQ SCH (07:53)
[2017-06-22] MEDS ORDERED: LABETALOL HCL 200 MG TABLET PO SCH (09:00)
[2017-06-22] MEDS: ENOXAPARIN 40 MG/0.4 ML DISP.SYRIN. SQ SCH (09:53)
[2017-06-22] MEDS: LABETALOL HCL 200 MG TABLET PO SCH ×2 (17:15→19:29)
--- NOTE | 2017-06-22 18:04 | CONS ---
DATE OF CONSULTATION: 06/21/2017 NEUROLOGIC CONSULTATION REFERRING PHYSICIAN: Dr. Stacia Hernández REASON FOR CONSULTATION: New stroke. HISTORY OF PRESENT ILLNESS: This is a 66-year-old right-handed white female, who was admitted to the Emergency Room last night after she presented with a chief complaint of mental status changes and generalized weakness. The patient was initially seen few days ago, she was transferred to [facility] with diagnosis of urinary tract infections. Initial nonenhanced head CT scan revealed evidence of subacute infarct in the right middle cerebral artery. The patient had had fever, chills and has been on antibiotics even after discharge from [facility]. She denies headaches, visual disturbances, nausea, vomiting, chest pain, shortness of breath or palpitation, dysarthria or dysphagia. PAST MEDICAL HISTORY: Significant for recent stroke confined to the left thalamus, coronary artery disease status post stent placement, cataract, diabetes mellitus, hyperlipidemia, carotid endarterectomy, urinary tract infections, chronic lower back pain secondary to degenerative disk disease. PAST SURGICAL HISTORY: Significant for coronary angioplasty with stent placement, cardiac surgery and tubal ligation. SOCIAL HISTORY: The patient is . She denies smoking, alcohol drinking, or illicit drug use. CURRENT MEDICATIONS: Aspirin 81 mg daily, insulin Levemir 30 units at bedtime, insulin NovoLog on sliding scale, metoprolol 100 mg twice daily, hydralazine 100 mg t.i.d. ALLERGIES: SULFA DRUGS. REVIEW OF SYSTEMS: A 10-point review of system was performed and as mentioned above in the history of present illness. PHYSICAL EXAMINATION: GENERAL: Well-developed, well-nourished white female, not in acute distress. She weighs 154 pounds. VITAL SIGNS: Blood pressure status 177/81, respiratory rate 18, pulse 90 and regular. CARDIOVASCULAR: Stage 2/6 systolic murmur. ABDOMEN: Soft. Bowel sounds, soft, positive. No bowel mass, organomegaly or tenderness. EXTREMITIES: Negative for cyanosis, clubbing or pitting edema. NEUROLOGIC: Mental status: The patient is alert and oriented x 2. The speech is fluent. There is no language dysfunction. Memory, judgment, and abstract thinking are fair. The patient denies hallucination or delusion. Cranial nerves: Visual quarles are full. The pupils are reactive to light and accommodation. The extraocular movements are intact. There is no nystagmus. There is no facial motor or sensory deficit. Hearing is intact bilaterally. The palate is elevated symmetrically. Sternocleidomastoid muscles are powerful bilaterally. The patient shrugs her shoulders symmetrically. Protrudes her tongue in the midline without fasciculation or atrophy. Motor: No focal muscle bulk was seen. Tone is normal. The strength is 5/5 throughout. Sensory examination: Revealed normal pinprick, light touch, vibratory and position senses. Deep tendon reflexes are symmetric and hypoactive without pathology responses. Gait: The patient had a steady stance. She uses a walker for ambulation. DIAGNOSTIC DATA: Chest x-ray revealed no evidence of subacute cardiopulmonary process and nonenhanced head CT scan revealed evidence of acute/subacute infarct confined to the right frontal regions, right frontal operculum and insula. LABORATORY DATA: CBC revealed white blood cells of 2.8 thousand, hemoglobin 13.6, hematocrit 39.7, platelet count 204,000. Chemistry: CBC revealed white cells of 140, potassium 3.5, chloride 103, CO2 29, BUN 15, creatinine 1.3, glucose 145. Calcium 8.6. Liver enzymes slightly elevated AST with normal ALT. Troponin level is 0.032. Lipid profile revealed normal cholesterol at 181, normal TSH and free T4. Urinalysis, few bacteria. Urine drug screen is negative. IMPRESSION: 1. Acute/subacute right middle cerebral artery infarct without significant focal neurological deficit. 2. History of coronary artery disease status post angioplasty, hyperlipidemia, hypertension, urinary tract infections, chronic lower back pain secondary to degenerative disk disease and diabetes. RECOMMENDATIONS: 1. We will change aspirin to 325 mg daily. 2. We will check previous medical record at [facility] if the patient had echocardiogram for carotid Doppler study. 3. Physical therapy evaluation. 4. Continue with current management and medication. M Gadiel RANDOLPH MD DR: PANCHO/kirstin JOB#: [id number] / [id number]
[2017-06-22] MEDS: SIMVASTATIN 20 MG TABLET PO SCH ×2 (20:50→20:54)
[2017-06-22] MEDS: INSULIN DETEMIR 300 UNITS/3 ML INSULN.PEN. SQ SCH (21:01)
[2017-06-23] VITALS (8 sets, daily range): BP systolic 111–162; BP diastolic 53–69
--- NOTE | 2017-06-23 00:42 | PN ---
DATE: 06/22/2017 SUBJECTIVE: The patient denies any new medical or neurological complaints. She sleeps, eats, and moves well. She denies headaches, visual disturbances, chest pain, shortness of breath or palpitation. OBJECTIVE: GENERAL: Well-developed, well-nourished white female in no acute distress. VITAL SIGNS: Blood pressure 136/71, respiratory rate 18, pulse is 80 and regular, temperature is 98.4, oxygen saturation is 96% on room air. HEENT: Normocephalic, atraumatic, otherwise unremarkable. NECK: Supple. Negative for carotid bruit, lymphadenopathy or thyromegaly. LUNGS: Clear to A and P. CARDIOVASCULAR: Regular rate and rhythm, normal S1, S2. There is no S3, S4 or murmur. ABDOMEN: Soft. Bowel sounds positive. EXTREMITIES: Negative for cyanosis, clubbing or pitting edema. NEUROLOGIC: Normal mental status and intact cranial nerves. There is no focal motor or sensory deficit. Deep tendon reflexes were symmetric and hypoactive without pathologic responses. Gait: The stance is normal. The patient making few steps in the room without any problems. DIAGNOSTIC DATA: Carotid Doppler study performed on 06/12/2017 revealed evidence of significant stenosis. Echocardiogram performed on 06/12/2017 revealed an ejection fraction of 55-60%, otherwise unremarkable. IMPRESSION: 1. Status post subacute infarct, confined to the right MCA distribution without significant neurological deficits. 2. Hypertension. 3. Multiple medical problems that include coronary artery disease, urinary tract infection, status post left carotid endarterectomy twice with ____ stent replacement and hyperlipidemia. RECOMMENDATIONS: Continue with current management and rehabilitation. M Gadiel RANDOLPH MD DR: PANCHO/kirstin JOB#: [id number] / [id number]
[2017-06-23 06:39] LABS: HEMATOCRIT 33.6 % (36.0-47.0); HEMOGLOBIN 11.7 g/dL (12.0-15.5); RED BLOOD COUNT 3.66 x10^6/uL (3.50-5.40); RED CELL DISTRIBUTION WIDTH 13.6 % (11.5-14.5); WHITE BLOOD COUNT 3.8 x10^3/uL (4.0-11.0)
[2017-06-23 06:58] LABS: ALBUMIN 2.7 g/dL (3.4-5.0); ALBUMIN/GLOBULIN RATIO 0.9 (1.0-1.7); CALCIUM 8.5 mg/dL (8.5-10.1); CREATININE 1.4 mg/dL (0.6-1.0); GFR 37.4; POTASSIUM 3.5 mmol/L (3.5-5.1); TOTAL BILIRUBIN 0.4 mg/dL (0.2-1.0); TOTAL PROTEIN 5.7 g/dL (6.4-8.2)
[2017-06-23] MEDS: LACTOBACILLUS RHAMNOSUS GG 1 CAPSULE. PO SCH (07:34)
[2017-06-23] MEDS: LABETALOL HCL 200 MG TABLET PO SCH ×2 (07:35→14:00)
[2017-06-23] MEDS: ASPIRIN 325 MG TABLET PO SCH (07:35)
[2017-06-23] MEDS: ENOXAPARIN 40 MG/0.4 ML DISP.SYRIN. SQ SCH (07:36)
[2017-06-23] MEDS: INSULIN ASPART 300 UNITS/3 ML INSULN.PEN SQ SCH ×2 (07:39→11:30)
--- NOTE | 2017-06-23 08:25 | PN ---
DATE: 06/22/2017 SUBJECTIVE: The patient is sitting comfortably in her chair, eating her lunch comfortably in no apparent respiratory distress. She is awake, alert. Denied any complaint, in particular denied any headache, blurring of vision, tingling, numbness, or localized weakness. She was admitted through the Emergency Room. She apparently was confused and her apparently brought her to the Emergency Room. According to , she was not doing any better. She was evaluated in the Emergency Room, was found to have acute/subacute stroke in the right middle cerebral artery. She was admitted recently with hypertensive urgency, hypertensive encephalopathy and hyperosmolar nonketotic hyperglycemia. She was completely unresponsive here at [facility] and then she was transferred to [facility] with an MRI showing that she has left old thalamic infarct. She apparently has a left carotid artery stenosis, status post carotid endarterectomy done twice and her carotid Doppler ultrasound done recently showed no evidence of significant stenosis of the left carotid bifurcation. She has also moderate atherosclerotic plaquing at the right middle carotid bifurcation with moderate narrowing of the proximal right external carotid artery and mild narrowing of the right internal carotid artery in the 0-50% diameter range. She was admitted, was continued on her antihypertensive medication. Apparently, the patient had a good recovery from many neurological deficits as her speech is not impaired. PHYSICAL EXAMINATION: GENERAL: When I saw her today, she was sitting comfortably in her chair, eating her lunch, in no apparent respiratory distress, slightly pale, but no jaundice, cyanosis, lymphadenopathy, or thyromegaly. No jugular venous distension. No limb edema. VITAL SIGNS: Her heart rate was 79, blood pressure 136/71, temperature was 98.4, respiratory rate was 18 and oxygen saturation was 96% on room air. HEAD, EYES, EARS, NOSE AND THROAT: Showed normocephalic, atraumatic. NECK: Supple. HEART: Showed normal first and second heart sounds with no gallop, rub or murmur. CHEST: Clear to auscultation. No crepitation or rhonchi. ABDOMEN: Distended, soft, nontender. NEUROLOGIC: She is awake, alert, responding appropriately. All cranial nerves intact. She moves extremities without difficulty. She apparently is unsteady in her gait, but manages to walk with a walker with physical therapy. Her intake was 1000, output was 650. LABORATORY DATA: Her lab work of yesterday, serum sodium 140, potassium 3.5, chloride 103, bicarbonate 29, anion gap of 8, BUN 15, creatinine 1.3, estimated GFR was 41 mL per minute. Her glucose 141, calcium was 8.7. Her troponin was 0.032. Her TSH was 1.531. Her white cell count was 2800, hemoglobin 13, hematocrit 39, MCV 93, and platelet count 204,000. ASSESSMENT: 1. Acute/subacute stroke in the right middle cerebral artery with good recovery from many neurological deficits. The patient has no aphasia or dysphagia. 2. Hypertension. 3. Left carotid artery stenosis, status post carotid endarterectomy done twice in 2004 and 2015. 4. Type 2 diabetes that was poorly controlled. She is now on both Lantus and NovoLog insulin. 5. Hyperlipidemia for which we will start her on Zocor. I will repeat all her lab works tomorrow. ALISON WEBER MD DR: MOOK/kirstin JOB#: [id number] / [id number]
[2017-06-23] MEDS ORDERED: LABE100T3 PO (15:36)
[2017-06-23] MEDS ORDERED: ASPI325T8 PO (15:42)
[2017-06-23] MEDS ORDERED: INSU100V31 SQ (15:47)
[2017-06-23] MEDS ORDERED: ACET500T68 PO (16:13)
[2017-06-23] MEDS ORDERED: SIMV20TA PO (16:14)
--- NOTE | 2017-06-23 22:22 | PN ---
DATE: 06/22/2017 SUBJECTIVE: The patient denies any new medical or neurological complaints. OBJECTIVE: GENERAL: Well-developed, well-nourished white female, not in acute distress. VITAL SIGNS: Blood pressure 136/71, respiratory rate 18, pulse is 88, oxygen saturation is 96% on room air, temperature is 98.4. HEENT: Normocephalic, atraumatic, otherwise, unremarkable. NECK: Supple. Negative for carotid bruit, lymphadenopathy or thyromegaly. LUNGS: Clear to A and P. CARDIOVASCULAR: Normal S1, S2. There is 2/6 systolic murmur. ABDOMEN: Soft. Bowel sounds positive. EXTREMITIES: Negative for cyanosis, clubbing or pitting edema. NEUROLOGICAL EXAM: Mental Status: The patient is alert and oriented x 3. Speech is fluent. There is no language dysfunction. Memory, judgment and abstract thinking are normal. The patient denies hallucination or delusion. Cranial nerves are intact. No focal motor or sensory deficit. Deep tendon reflexes were symmetric and active without pathologic responses. Gait: The stance is steady. The patient walks few steps in the home without difficulties. DIAGNOSTIC DATA: Recent echocardiogram and carotid Doppler study revealed no significant abnormalities. IMPRESSION: 1. Status post subacute right MCA infarct without significant neurological deficits. 2. Multiple medical problems includes hypertension, hyperlipidemia, coronary angioplasty, urinary tract infections, chronic low back pain, status post left carotid endarterectomy x 2. RECOMMENDATION: Continue with current management initiated by Dr. Hernández/Dr. Rizo and continue aspirin 325 mg a day, physical therapy evaluation. M Gadiel RANDOLPH MD DR: PANCHO/kirstin JOB#: [id number] / [id number]
--- NOTE | 2017-06-23 22:57 | DS ---
DATE OF DISCHARGE: 06/23/2017 HOSPITAL COURSE: The patient is sitting in the edge of the bed comfortably in no apparent distress. She was admitted with altered mental status and was found to have acute subacute stroke in her right middle cerebral artery territory with good recovery without any neurological deficit. The patient in particular has no aphasia or dysphagia and it was felt that the patient would benefit from further rehabilitation and will be discharged to [facility] for further rehabilitation. PHYSICAL EXAMINATION: GENERAL: When I saw her today, she was sitting comfortably on the edge of the bed, in no apparent respiratory distress, pale, but no jaundice, cyanosis or thyromegaly. No jugular venous distension. No lower limb edema. VITAL SIGNS: Her heart rate was 68, blood pressure was 111/53, temperature was 98.2, respiratory rate was 20 and oxygen saturation was 94%. HEAD, EYES, EARS, NOSE AND THROAT: Showed normocephalic, atraumatic. NECK: Supple. HEART: Showed normal first and second heart sounds with no gallop, rub or murmur. CHEST: Clear to auscultation. No crepitation or rhonchi. ABDOMEN: Distended, soft, nontender. No guarding or rigidity. No organomegaly. Hernial orifice intact. Bowel sounds normal. NEUROLOGIC: She is awake, alert, responding appropriately. Cranial nerves intact. She moves extremities without difficulty. She ambulates with minimal assistance. Her intake was 1900, output was 750. LABORATORY DATA: This morning showed white cell count of 3800, hemoglobin 12, hematocrit 34, MCV 92 and platelet count of 179,000. Her chemistry showed a serum sodium 135, potassium 3.5, chloride 99, bicarbonate 26, anion gap of 10, BUN 16, creatinine 1.4. Estimated GFR was 37 mL per minute. Her glucose was 146. Calcium was 8.5. Total bilirubin, AST, ALT, alkaline phosphatase are normal. Total protein 5.7, albumin 2.4. DISCHARGE MEDICATIONS: She will be discharged to [facility] to continue on simvastatin 20 mg at bedtime, labetalol 200 mg 3 times a day, aspirin 325 mg once a day, Tylenol 500 mg every 6 hours, detemir insulin 30 units at bedtime, NovoLog insulin 3 times a day before meals as insulin sliding scale. She is also on hydralazine 100 mg 3 times a day, lactobacillus rhamnosus 1 capsule p.o. b.i.d. FINAL DISCHARGE DIAGNOSES: 1. Acute subacute stroke in the right middle cerebral artery with good recovery from neurological deficit. The patient has no aphasia or dysphagia. 2. Hypertension. 3. Left carotid artery stenosis status post carotid endarterectomy done twice in 2004 and 2015. 4. Type 2 diabetes mellitus that is poorly controlled. She is now on both Lantus and NovoLog insulin, is much better controlled. 5. Hyperlipidemia for which she is started on Zocor. ALISON WEBER MD DR: MOOK/kirstin JOB#: [id number] / [id number]
--- NOTE | 2017-06-23 23:35 | PN ---
DATE: 06/23/2017 SUBJECTIVE: The patient denies any new medical or neurological complaints. She complains of a slight headache. She denies nausea, vomiting, chest pain, shortness of breath, palpitation, weakness or paresthesia. OBJECTIVE: GENERAL: Well-developed, well-nourished white female, not in acute distress. VITAL SIGNS: Blood pressure 125/61, respiratory rate 16, pulse is 84 and regular, temperature 98.9, oxygen saturation 96% on room air. HEENT: Normocephalic, atraumatic, otherwise unremarkable. NECK: Supple. Negative for carotid bruit, lymphadenopathy or thyromegaly. LUNGS: Clear to A and P. CARDIOVASCULAR: Regular rate and rhythm, normal S1, S2. There is a 2/6 systolic murmur. ABDOMEN: Soft. Bowel sounds positive. EXTREMITIES: Negative for cyanosis, clubbing or pitting edema. NEUROLOGIC: Normal mental status and intact cranial nerves. There is no focal motor or sensory deficit. Deep tendon reflexes were symmetric and active without pathologic responses. Gait, stance is steady. The patient sometimes walk in the room without assistance. LABORATORY DATA: CBC revealed white blood cells of 3.8, hemoglobin 11.7, hematocrit 33.6, platelet count 179,000. Chemistry revealed sodium 135, potassium 99, CO2 26, BUN 16, creatinine 1.4, glucose of 191. Calcium 8.5. IMPRESSION: 1. Status post subacute infarct in the right middle cerebral artery distribution; however, she does not have any focal neurological deficit. 2. Multiple medical problems include hypertension, hyperlipidemia, coronary artery disease, urinary tract infections and chronic lower back pain. RECOMMENDATIONS: 1. Continue with current management with aspirin 325 mg. 2. Continue with current care initiated by Dr. Hernández and Dr. Rizo. M Gadiel RANDOLPH MD DR: PANCHO/kirstin JOB#: [id number] / [id number]
== END 2017-06-23 17:15 | DRG 65 ==
LOC: ER 18:56 → ICU 20:18
PROVIDERS: ADMIT Family Medicine; ATTEND Family Medicine
DX: I63.511 Cerebral infarction due to unspecified occlusion or stenosis of right middle cerebral artery (principal); N39.0 Urinary tract infection, site not specified; E86.0 Dehydration; E11.65 Type 2 diabetes mellitus with hyperglycemia; E78.5 Hyperlipidemia, unspecified; I25.10 Atherosclerotic heart disease of native coronary artery without angina pectoris; B37.3 Candidiasis of vulva and vagina; W18.39XA Other fall on same level, initial encounter; S00.83XA Contusion of other part of head, initial encounter; I10 Essential (primary) hypertension; G89.29 Other chronic pain; Z77.22 Contact with and (suspected) exposure to environmental tobacco smoke (acute) (chronic); Z87.891 Personal history of nicotine dependence; Z90.710 Acquired absence of both cervix and uterus; Z95.5 Presence of coronary angioplasty implant and graft; Z98.51 Tubal ligation status; Z82.5 Family history of asthma and other chronic lower respiratory diseases; Z88.2 Allergy status to sulfonamides; Z86.73 Personal history of transient ischemic attack (TIA), and cerebral infarction without residual deficits; Y93.89 Activity, other specified; Y92.89 Other specified places as the place of occurrence of the external cause; Y99.8 Other external cause status
CPT/HCPCS: 36415; 70450; 71045; 80048; 80053; 80076; 80307; 81001; 82465; 82947; 83605; 83690; 83735; 84443; 84484; 85025; 85027; 85610; 85730; 87040; 87641; 87804; 93005; 96361; 96365; 96366; 96368; 99292; G0480; J0696; J1650; J1815; J2405; J3370; J7050; 97110; 97530; 97535; 99291-25; G0479; J7030

== ENCOUNTER → 2018-01-11 | Outpatient (CLI) | payer MEDICARE, BC ==
[2017-06-23 11:06] VITALS: BP 111/53
[~2018-01-11] MED LIST: ACET500T68 PO; ASPI325T8 PO; HYDR100T24 PO; INSU100I13 SQ; INSU100V SQ; INSU100V31 SQ; LABE100T5 PO; METO100T7 PO; SIMV20TA PO
--- NOTE | 2018-01-11 13:02 | RAD ---
EXAM: Sacroiliac joints, 4 views. HISTORY: Pain. COMPARISON: None. FINDINGS: 4 views of the sacroiliac joints are obtained. There is mild degenerative subchondral sclerosis involving the sacroiliac joints. There is no fracture, dislocation or subluxation. There is lumbar dextroscoliosis. There is degenerative endplate remodeling with disc space narrowing and facet arthropathy predominantly at L4-L5 and L5-S1. There is a left iliac artery stent. There is aortobiiliac atherosclerosis. IMPRESSION: 1. Mild osteoarthritis involving the sacroiliac joints. 2. Degenerative change of the lower lumbar levels. Electronically signed by: Ct Garrido MD (01/11/2018 12:58 PM) [facility]
== END | disposition home or self-care (01) ==
LOC: PMG 11:50
PROVIDERS: ATTEND Neuromusculoskeletal Medicine & OMM
DX: M47.898 Other spondylosis, sacral and sacrococcygeal region (principal); I70.0 Atherosclerosis of aorta; M12.88 Other specific arthropathies, not elsewhere classified, other specified site; M48.08 Spinal stenosis, sacral and sacrococcygeal region; I12.9 Hypertensive chronic kidney disease with stage 1 through stage 4 chronic kidney disease, or unspecified chronic kidney disease; E11.22 Type 2 diabetes mellitus with diabetic chronic kidney disease; N18.9 Chronic kidney disease, unspecified; E78.5 Hyperlipidemia, unspecified; Z95.5 Presence of coronary angioplasty implant and graft; Z87.891 Personal history of nicotine dependence; Z90.710 Acquired absence of both cervix and uterus; Z82.5 Family history of asthma and other chronic lower respiratory diseases
CPT/HCPCS: 72202

== ENCOUNTER → 2018-04-01 | Outpatient (CLI) | payer MEDICARE, BC ==
[2017-06-23 11:06] VITALS: BP 111/53
--- NOTE | 2018-04-01 13:43 | RAD ---
Three-view left knee dated 04/01/2018. No comparison available. Clinical data indication: Pain after injury. FINDINGS: 3 views left knee show normal bony alignment. No displaced fracture. No acute osseous or articular abnormality. Moderate tricompartmental hypertrophic changes with asymmetric medial joint space narrowing. No joint effusion. Calcification above the patella could represent a small loose body or calcification related to the distal quadriceps tendon. No apparent joint effusion. Vascular calcinosis. IMPRESSION: 1. No acute radiographic abnormality. 2. Moderate tricompartmental DJD with possible small bowel loose body at the suprapatellar joint space. Electronically signed by: Sincere Menard MD (04/01/2018 1:40 PM) [facility]
== END | disposition home or self-care (01) ==
LOC: RAD 12:00
PROVIDERS: ATTEND Psychiatry & Neurology Neurology
DX: M17.12 Unilateral primary osteoarthritis, left knee (principal); Z91.81 History of falling
CPT/HCPCS: 73562

== ENCOUNTER 2018-06-26 12:12 | Inpatient (IN) | payer MEDICARE ==
[~2018-06-26] VITALS: Ht 160 cm; Wt 68.7 kg
[2018-06-26] MEDS ORDERED: LIDO:MAALOX 1:1 20 ML SINGLE DOSE. PO ONE (12:30)
[2018-06-26] MEDS ORDERED: ASPIRIN 81 MG TAB.CHEW PO ONE (12:30)
[2018-06-26 12:50] LABS: BASO % 0 % (0-3); EOS # 0.2 x10^3/uL (0.0-0.7); EOS % 2 % (0-3); HEMATOCRIT 46.2 % (36.0-47.0); HEMOGLOBIN 15.3 g/dL (12.0-15.5); LYMPH % 8 % (24-48); MEAN CORPUSCULAR HEMOGLOBIN 30 pg (25-35); MEAN CORPUSCULAR HGB CONC 33 g/dL (31-37); MEAN CORPUSCULAR VOLUME 91 fL (79-100); MONO % 8 % (0-9); NEUT % 82 % (31-73); PLATELET COUNT 287 x10^3/uL (140-400); RED BLOOD COUNT 5.11 x10^6/uL (3.50-5.40); RED CELL DISTRIBUTION WIDTH 14.3 % (11.5-14.5); WHITE BLOOD COUNT 12.2 x10^3/uL (4.0-11.0)
--- NOTE | 2018-06-26 12:54 | PHYS DOC ---
Past History Past Medical History: CVA, Diabetes, Hypertension, Kidney Infection, UTI, Other Past Surgical History: Tubal ligation, Other (left iliac artery stent placement ) Smoking: Quit Greater Than 1 Year Alcohol Use: None Drug Use: None Adult General Chief Complaint Chief Complaint: chest pain HPI HPI Patient is a 67 year old female who presents with complaining of chest pain. Patient states he had marked sore throat as a burning feeling in her throat is morning and had strong coffee at [employer] and her pain became worse. Patient complaining of radiation of pain to substernal area about an hour ago as an aching pain. Patient complaining of shortness of breath and radiation of pain to her back and rated her pain 5/10. Patient denies nausea, palpitation, dizziness, fever and chills, cough and congestion. Patient complaining of sinus headache for the last couple days and few episodes of diarrhea for 2 days. Patient denies history of coronary artery disease and previous cardiac evaluation. Patient had history of hypertension and diabetes without any family history of coronary artery disease. Patient was a remote smoker. Review of Systems Review of Systems Constitutional: Denies fever or chills [] Eyes: Denies change in visual acuity, redness, or eye pain [] HENT: Denies nasal congestion, reports sore throat [] Respiratory: Denies cough or shortness of breath [] Cardiovascular: No additional information not addressed in HPI [] GI: Denies abdominal pain, nausea, vomiting, bloody stools or diarrhea [] : Denies dysuria or hematuria [] Musculoskeletal: Denies back pain or joint pain [] Integument: Denies rash or skin lesions [] Neurologic: Reports headache, denies focal weakness or sensory changes [] Endocrine: Denies polyuria or polydipsia [] All other systems were reviewed and found to be within normal limits, except as documented in this note. Current Medications Current Medications Current Medications Medications (Trade) Dose Ordered Sig/Amanda Start Time Stop Time Status Last Admin Dose Admin Aspirin (Children'S Aspirin) 324 mg 1X ONCE 06/26/18 12:30 06/26/18 12:31 UNV Multi-Ingredient Mouthwash/Gargle (Gi Cocktail) 20 ml 1X ONCE 06/26/18 12:30 06/26/18 12:31 UNV Allergies Allergies Allergies Coded Allergies Type Severity Reaction Last Updated Verified Sulfa (Sulfonamide Antibiotics) Allergy Intermediate 06/23/17 Yes Physical Exam Physical Exam Constitutional: Well developed, well nourished, mild distress, non-toxic appearance. [] HENT: Normocephalic, atraumatic, bilateral external ears normal, oropharynx moist, no oral exudates, nose normal. [] Eyes: PERRLA, EOMI, conjunctiva normal, no discharge. [] Neck: Normal range of motion, no tenderness, supple, no stridor. [] Cardiovascular:Heart rate regular rhythm, no murmur [] Lungs & Thorax: Bilateral breath sounds clear to auscultation [] Abdomen: Bowel sounds normal, soft, no tenderness, no masses, no pulsatile masses. [] Skin: Warm, dry, no erythema, no rash. [] Back: No tenderness, no CVA tenderness. [] Extremities: No tenderness, no cyanosis, no clubbing, ROM intact, no edema. [] Neurologic: Alert and oriented X 3, normal motor function, normal sensory function, no focal deficits noted. [] Psychologic: Affect normal, judgement normal, mood normal. [] EKG EKG EKG interpreted by me. EKG at 1221 shows normal sinus rhythm at rate of 79, incomplete right bundle branch block, poor R-wave progress in anteroseptal leads , no acute ST and T-wave abnormalities. Radiology/Procedures Radiology/Procedures [address] [address] IMAGING REPORT Signed PATIENT: AUSTIN RAZA ACCOUNT: [id number] : 1950 LOCATION: ER AGE: 67 SEX: F EXAM STATUS: REG ER ORD. PHYSICIAN: ADELINA TORRE MD REASON: headache PROCEDURE: CT HEAD WO CONTRAST EXAM: CT Head without IV contrast CLINICAL HISTORY: HEADACHE/DIZZINESS X 1 DAY COMPARISON: CT head 06/20/2017 TECHNIQUE: Routine CT of the head without contrast. Soft tissues and bone windows were reviewed. PQRS compliance statement - One or more of the following individualized dose reduction techniques were utilized for this study: 1. Automated exposure control 2. Adjustment of the mA and/or kV according to patient size 3. Use of iterative reconstruction technique FINDINGS: There is no evidence of hemorrhage, mass or extra-axial fluid collection. Evolution of the known right infarct. No new region of infarct is identified. Regions of subcortical and periventricular hypoattenuation may be seen with chronic small vessel disease. There is no mass effect or shift of the intracranial structures. The ventricles, basilar cisterns and cortical sulci are normal in size and configuration for the patients stated age. The cerebellum and brainstem are unremarkable. The calvarium demonstrates no evidence of fracture or focal lesion. There is normal aeration of the visualized paranasal sinuses and mastoid air cells. The visualized portions of the orbits are normal. IMPRESSION: Progressive evolution of the known right-frontal operculum and right insular infarct with mild encephalomalacia. No new region of infarct or evidence for superimposed hemorrhage. Electronically signed by: Dallin Chapa MD (06/26/2018 1:19 PM) [facility] DICTATED AND SIGNED BY: DALLIN CHAPA MD DATE: 06/26/181315 CC: ADELINA TORRE MD; MELISSA GERBER MD ~ [place] [id number] IMAGING REPORT Signed PATIENT: AUSTIN RAZA ACCOUNT: [id number] : 1950 LOCATION: ER AGE: 67 SEX: F EXAM STATUS: REG ER ORD. PHYSICIAN: ADELINA TORRE MD REASON: chest pain PROCEDURE: PORTABLE CHEST 1V EXAM: AP View of the chest DATE: 06/26/2018 11:44 AM INDICATION: chest pain with burning feeling x 1 day, hx of heart disease COMPARISON: 06/20/2017 FINDINGS: The heart is not enlarged. Mediastinal and hilar contours are normal. Linear nodular opacity left lung base likely scarring/atelectasis. No pleural effusion or pneumothorax. IMPRESSION: 1. No radiographic evidence for acute cardiopulmonary process. Electronically signed by: Dallin Chapa MD (06/26/2018 1:20 PM) [facility] DICTATED AND SIGNED BY: DALLIN CHAPA MD DATE: 06/26/181318 CC: ADELINA TORRE MD; MELISSA GERBER MD ~ Course & Med Decision Making Course & Med Decision Making Pertinent Labs and Imaging studies reviewed. (See chart for details) Evaluation of patient in ER showed 67-year-old female patient with complaining of sore throat and chest pain and headache. Patient had mild cognitive problem and felt better after treatment with GI cocktail. Patient had multiple cardiac risk factor and plan to admit patient for more evaluation. Documented except for admission at 1353. Patient had blood sugar of 58 and oral glucose was given also patient had magnesium of 1.5 and oral magnesium was given. Dragon Disclaimer Dragon Disclaimer This electronic medical record was generated, in whole or in part, using a voice recognition dictation system. Departure Departure: Impression: Primary Impression: Acute chest pain Additional Impressions: Hypomagnesemia Renal insufficiency Headache Hypoglycemia Mild cognitive impairment Disposition: ADMITTED INPATIENT (@1354) Admitting Physician: Tobi Rizo (accepted admission at 1353) Condition: IMPROVED Referrals: MELISSA GERBER MD (PCP) Problem Qualifiers ADELINA TORRE MD Jun 26, 2018 12:54
--- NOTE | 2018-06-26 13:23 | RAD ---
EXAM: CT Head without IV contrast CLINICAL HISTORY: HEADACHE/DIZZINESS X 1 DAY COMPARISON: CT head 06/20/2017 TECHNIQUE: Routine CT of the head without contrast. Soft tissues and bone windows were reviewed. PQRS compliance statement - One or more of the following individualized dose reduction techniques were utilized for this study: 1. Automated exposure control 2. Adjustment of the mA and/or kV according to patient size 3. Use of iterative reconstruction technique FINDINGS: There is no evidence of hemorrhage, mass or extra-axial fluid collection. Evolution of the known right infarct. No new region of infarct is identified. Regions of subcortical and periventricular hypoattenuation may be seen with chronic small vessel disease. There is no mass effect or shift of the intracranial structures. The ventricles, basilar cisterns and cortical sulci are normal in size and configuration for the patients stated age. The cerebellum and brainstem are unremarkable. The calvarium demonstrates no evidence of fracture or focal lesion. There is normal aeration of the visualized paranasal sinuses and mastoid air cells. The visualized portions of the orbits are normal. IMPRESSION: Progressive evolution of the known right-frontal operculum and right insular infarct with mild encephalomalacia. No new region of infarct or evidence for superimposed hemorrhage. Electronically signed by: Dallin Ennis MD (06/26/2018 1:19 PM) [facility]
--- NOTE | 2018-06-26 13:24 | RAD ---
EXAM: AP View of the chest DATE: 06/26/2018 11:44 AM INDICATION: chest pain with burning feeling x 1 day, hx of heart disease COMPARISON: 06/20/2017 FINDINGS: The heart is not enlarged. Mediastinal and hilar contours are normal. Linear nodular opacity left lung base likely scarring/atelectasis. No pleural effusion or pneumothorax. IMPRESSION: 1. No radiographic evidence for acute cardiopulmonary process. Electronically signed by: Dallin Ennis MD (06/26/2018 1:20 PM) [facility]
[2018-06-26 13:39] LABS: ALBUMIN 3.4 g/dL (3.4-5.0); ALBUMIN/GLOBULIN RATIO 0.9 (1.0-1.7); CALCIUM 9.6 mg/dL (8.5-10.1); CREATININE 1.2 mg/dL (0.6-1.0); GFR 44.5; MAGNESIUM 1.5 mg/dL (1.8-2.4); TOTAL BILIRUBIN 0.5 mg/dL (0.2-1.0); TOTAL PROTEIN 7.3 g/dL (6.4-8.2)
[2018-06-26 13:42] LABS: POTASSIUM 3.9 mmol/L (3.5-5.1)
[2018-06-26] MEDS ORDERED: MAGNESIUM OXIDE 400 MG TABLET PO ONE (14:20)
[2018-06-26 15:18] VITALS: BP 158/74
[2018-06-26] MEDS ORDERED: NEBI5TAB2 PO (15:25)
[2018-06-26] MEDS ORDERED: INSU100C SQ (15:25)
[2018-06-26] MEDS ORDERED: GABA600T2 PO (15:25)
[2018-06-26] MEDS ORDERED: DONE5TAB7 PO (15:25)
[2018-06-26] MEDS ORDERED: POTA10TA10 PO (15:25)
[2018-06-26] MEDS ORDERED: AMLO10TA6 PO (15:25)
[2018-06-26] MEDS ORDERED: ACETAMINOPHEN 325 MG TABLET PO PRN (16:00)
[2018-06-26] MEDS: INSULIN LISPRO 300 UNITS/3 ML INSULN.PEN. SQ SCH (16:51)
[2018-06-26 19:34] VITALS: BP 176/83
[2018-06-26] MEDS: GABAPENTIN 100 MG CAPSULE. PO SCH (20:02)
[2018-06-26] MEDS: POTASSIUM CHLORIDE 10 MEQ TABLET.ER. PO SCH (20:02)
[2018-06-26] MEDS: METOPROLOL TART IMMED RELEASE 25 MG TABLET PO SCH (20:03)
[2018-06-26] MEDS ORDERED: ONDANSETRON PF 4 MG/2 ML VIAL. IV PRN (20:45)
[2018-06-26] MEDS ORDERED: INSULIN GLARGINE 300 UNITS/3 ML INSULN.PEN. SQ SCH (21:00)
[2018-06-26] MEDS ORDERED: DONEPEZIL HCL 5 MG TABLET. PO SCH (21:00)
[2018-06-26 22:59] VITALS: BP 150/74
[2018-06-27 05:39] VITALS: BP 127/79
[2018-06-27] MEDS: POTASSIUM CHLORIDE 10 MEQ TABLET.ER. PO SCH (08:11)
[2018-06-27] MEDS: GABAPENTIN 100 MG CAPSULE. PO SCH (08:11)
[2018-06-27] MEDS: METOPROLOL TART IMMED RELEASE 25 MG TABLET PO SCH (08:12)
[2018-06-27] MEDS: INSULIN LISPRO 300 UNITS/3 ML INSULN.PEN. SQ SCH (08:18)
[2018-06-27] MEDS ORDERED: amLODIPine BESYLATE 10 MG TABLET PO SCH (09:00)
--- NOTE | 2018-06-27 09:11 | EKG ---
[address] [address] Test Date: 2018-06-26 Test Time: 12:21:42 Pat Name: AUSTIN RAZA Department: Room: 113 A Gender: F [employer] Molding Machine Operator: SULEMA : 1950 Requested By: ADELINA TORRE Order Number: [id number] Reading MD: Xiang Pham MD Measurements Intervals [place] Rate: 79 P: 59 HI: 154 QRS: 41 QRSD: 94 T: 9 QT: 384 QTc: 441 Interpretive Statements SINUS RHYTHM RBBB Electronically Signed On 06-28-2018 10:10:02 [employer] by Xiang Pham MD
[2018-06-27 10:29] VITALS: BP 102/67
--- NOTE | 2018-06-27 10:30 | PDOC2 ---
CONSULT Date of Admission DATE: 06/27/18 TIME: 10:28 Reason for Consult: Chest pain Referring Physician: Dr. Rizo Chief Complaint Chest pain Source: Chart review, Patient History of Present Illness 67-year-old female presented complaining of retrosternal chest pain that she described as throbbing sensation not related to exertion or food intake. She denied any orthopnea/PND, palpitations or syncope. Past Medical History Hypertension Hyperlipidemia Diabetes mellitus type 2 Carotid artery stenosis CVA Chronic low back pain UTI Past Surgical History Carotid endarterectomy Tubal ligation Family History Negative for premature coronary artery disease Social History Quit smoking several years ago. Denied any alcohol or drug abuse Current Medications Current Medications Aspirin (Children'S Aspirin) 324 mg 1X ONCE PO Last administered on 06/26/18at 12:40; Start 06/26/18 at 12:30; Stop 06/26/18 at 12:54; Status DC Multi-Ingredient Mouthwash/Gargle (Gi Cocktail) 20 ml 1X ONCE PO Last administered on 06/26/18 12:39; Start 06/26/18 at 12:30; Stop 06/26/18 at 12:54; Status DC Magnesium Oxide (Magnesium Oxide) 400 mg 1X ONCE PO Last administered on at 14:21; Start 06/26/18 at 14:20; Stop 06/26/18 at 14:21; Status DC Insulin Glargine (Lantus) 30 units QHS SQ ; Start 06/26/18 at 21:00 Amlodipine Besylate (Norvasc) 10 mg DAILY PO Last administered on 06/27/18 08: 11; Start 06/27/18 at 09:00 Donepezil HCl (Aricept) 5 mg QHS PO Last administered on 06/26/18at 20:02; Start 06/26/18 at 21:00 Gabapentin (Neurontin) 100 mg TID PO Last administered on 06/27/18 08:11; Start 06/26/18 at 21:00 Insulin Human Lispro (HumaLOG) 15 units BIDBFRMEAL SQ Last administered on at 08:18; Start 06/26/18 at 16:30 Potassium Chloride (Klor-Con) 10 meq BID PO Last administered on 06/27/18at 08:11 ; Start 06/26/18 at 21:00 Metoprolol Tartrate (Lopressor) 12.5 mg BID PO Last administered on 06/27/18at 08 :12; Start 06/26/18 at 21:00 Acetaminophen (Tylenol) 650 mg Q6HRS PRN PO PAIN Last administered on 06/26/18at 16:35; Start 06/26/18 at 16:00 Ondansetron HCl (Zofran) 4 mg PRN Q6HRS PRN IV NAUSEA/VOMITING Last administered on 06/26/18at 21:10; Start 06/26/18 at 20:45 Active Scripts Active Reported Humalog (Insulin Lispro) 100 Unit/1 Ml Cartridge 15 Unit SQ BID Donepezil Hcl 5 Mg Tablet 1 Tab PO QHS Amlodipine Besylate 10 Mg Tablet 1 Tab PO DAILY Gabapentin 600 Mg Tablet 100 Mg PO TID Bystolic (Nebivolol Hcl) 5 Mg Tablet 2.5 Mg PO DAILY Potassium Chloride 10 Meq Tablet.er 10 Meq PO BID Lantus Solostar (Insulin Glargine,Hum.rec.anlog) 100 Unit/1 Ml Insuln.pen 30 Unit SQ QHS Allergies: Coded Allergies: Sulfa (Sulfonamide Antibiotics) (Verified Allergy, Intermediate, 06/23/17) PSYCHOLOGICAL ROS: No: Hallucinations Eyes: No: Loss of vision HEENT: No: Epistaxis Respiratory: No: Orthopnea, Shortness of breath Cardiovascular: yes: Chest Pain Gastrointestinal: No: Vomiting, Diarrhea Genitourinary: No: Dysuria Neurological: No: Seizures Skin: No: Rash General: Alert, Oriented X3 HEENT: Atraumatic, PERRLA Lungs: Clear to auscultation Heart: Regular rate Abdomen: Soft, No tenderness Extremities: No edema Psych/Mental Status: Mood NL VITALS Vital Signs Date Time Temp Pulse Resp B/P (MAP) Pulse Ox O2 Delivery O2 Flow Rate FiO2 06/27/18 08:12 69 127/79 06/27/18 08:10 Room Air 06/27/18 05:39 98.1 18 95 Labs Laboratory Tests Test 06/26/18 12:25 06/26/18 12:57 06/26/18 14:02 06/26/18 14:48 White Blood Count 12.2 x10^3/uL (4.0-11.0) Red Blood Count 5.11 x10^6/uL (3.50-5.40) Hemoglobin 15.3 g/dL (12.0-15.5) Hematocrit 46.2 % (36.0-47.0) Mean Corpuscular Volume 91 fL (79-100) Mean Corpuscular Hemoglobin 30 pg (25-35) Mean Corpuscular Hemoglobin Concent 33 g/dL (31-37) Red Cell Distribution Width 14.3 % (11.5-14.5) Platelet Count 287 x10^3/uL (140-400) Neutrophils (%) (Auto) 82 % (31-73) Lymphocytes (%) (Auto) 8 % (24-48) Monocytes (%) (Auto) 8 % (0-9) Eosinophils (%) (Auto) 2 % (0-3) Basophils (%) (Auto) 0 % (0-3) Neutrophils # (Auto) 10.0 x10^3uL (1.8-7.7) Lymphocytes # (Auto) 1.0 x10^3/uL (1.0-4.8) Monocytes # (Auto) 1.0 x10^3/uL (0.0-1.1) Eosinophils # (Auto) 0.2 x10^3/uL (0.0-0.7) Basophils # (Auto) 0.0 x10^3/uL (0.0-0.2) Troponin I Quantitative < 0.017 ng/mL (0-0.055) Sodium Level 142 mmol/L (136-145) Potassium Level 3.9 mmol/L (3.5-5.1) Chloride Level 104 mmol/L (98-107) Carbon Dioxide Level 28 mmol/L (21-32) Anion Gap 10 (6-14) Blood Urea Nitrogen 15 mg/dL (7-20) Creatinine 1.2 mg/dL (0.6-1.0) Estimated GFR (Cockcroft-Gault) 44.5 BUN/Creatinine Ratio 13 (6-20) Glucose Level 58 mg/dL (70-99) Calcium Level 9.6 mg/dL (8.5-10.1) Magnesium Level 1.5 mg/dL (1.8-2.4) Total Bilirubin 0.5 mg/dL (0.2-1.0) Aspartate Amino Transf (AST/SGOT) 36 U/L (15-37) Alanine Aminotransferase (ALT/SGPT) 28 U/L (14-59) Alkaline Phosphatase 129 U/L (46-116) Creatine Kinase 317 U/L (26-192) CT-Cdt-Z-Type Natriuretic Peptide 203 pg/mL (0-124) Total Protein 7.3 g/dL (6.4-8.2) Albumin 3.4 g/dL (3.4-5.0) Albumin/Globulin Ratio 0.9 (1.0-1.7) Lipase 192 U/L (73-393) Glucose (Fingerstick) 61 mg/dL (70-99) 151 mg/dL (70-99) Test 06/26/18 16:41 06/26/18 17:07 06/26/18 19:55 06/26/18 20:04 Glucose (Fingerstick) 180 mg/dL (70-99) 97 mg/dL (70-99) Troponin I Quantitative 0.018 ng/mL (0-0.055) < 0.017 ng/mL (0-0.055) Test 06/27/18 06:47 06/27/18 07:43 Triglycerides Level 70 mg/dL (0-150) Cholesterol Level 198 mg/dL (0-200) LDL Cholesterol, Calculated 89 mg/dL (0-100) VLDL Cholesterol, Calculated 14 mg/dL (0-40) Non-HDL Cholesterol Calculated 103 mg/dL (0-129) HDL Cholesterol 95 mg/dL (40-60) Cholesterol/HDL Ratio 2.0 Glucose (Fingerstick) 131 mg/dL (70-99) Assessment/Plan 1. Chest pain with atypical features: Myocardial infarction ruled out. Plan for 2-D echocardiogram to assess LV function and Lexiscan nuclear stress test to rule out ischemia as an outpatient. 2. Hypertension: Controlled 3. Diabetes mellitus type 2: Treat per IM Thank you for your consultation JOHN SAWANT MD Jun 27, 2018 10:30
--- NOTE | 2018-06-27 12:05 | SSS ---
ADMIT DATE: 06/27/2018 HISTORY OF PRESENT ILLNESS: The patient is a 67-year-old female patient who presented to the Emergency Room complaining of chest pain and stated that she had marked sore throat, has a burning feeling in her throat. In the morning had had strong coffee at [employer]. Her pain became worse. The patient is complaining of radiation of pain to the substernal area about an hour ago prior to arrival to the Emergency Room. She is complaining of shortness of breath and radiation of pain to her back that she rated about 5/10 in severity. Denied any nausea, palpitation, dizziness, fever, chills, cough, or congestion. She did complain of sinus headache for the last couple of days and few episodes of diarrhea for 2 days. The patient denied any history of coronary artery disease or previous cardiac evaluation. She is known to have hypertension, diabetes without any family history of coronary artery disease. She was a remote smoker. She was extensively evaluated in the Emergency Room. Her EKG showed that she was in sinus rhythm at a rate of 79 with incomplete right bundle-branch block, poor R-wave progression, but no ST segment elevation or depression. CT scan of the head showed progressive evolution known right frontal operculum and right insular infarct with mild encephalomalacia. No new lesion or infarct or evidence of superimposed hemorrhage. The patient's first set of cardiac enzyme showed troponin to be less than 0.17 and was admitted and has had 2 more sets of cardiac enzymes that were negative. She was seen in consultation by the Cardiology team who basically recommended the patient can be safely discharged to arrange for an outpatient nuclear stress test. PAST MEDICAL HISTORY: Significant for: 1. Stroke confined to the left thalamus. 2. Coronary artery disease, status post stent deployment. 3. Type 2 diabetes mellitus. 4. Hyperlipidemia. 5. Carotid stenosis. 6. Chronic lower back pain due to degenerative disk disease. 7. Recurrent urinary tract infection. PAST SURGICAL HISTORY: Significant for coronary angioplasty with stent deployment, tubal ligation and carotid endarterectomy. ALLERGIES: SHE IS ALLERGIC TO SULFA DRUGS. FAMILY HISTORY: Unremarkable. SOCIAL HISTORY: She is . She is a remote smoker, does not drink alcohol or use any illicit drugs. MEDICATIONS: She is currently on following medication: She is on Aricept 10 mg at bedtime, Nebivolol 2.5 mg daily, amlodipine 10 mg daily, gabapentin 100 mg 3 times a day, potassium chloride 10 mEq twice a day and Lantus insulin 30 units subcutaneously at bedtime and Humalog insulin 15 units subcutaneously twice a day. REVIEW OF SYSTEMS: The patient denied any blurring of vision, cataract, glaucoma or macular degeneration. Denied any earache, tinnitus or sensorineural deafness. Denied any nosebleeds, stuffy nose or postnasal drip. Denied any sore throat, sore tongue, toothache, hoarseness of voice or difficulty swallowing. Denied any nausea, vomiting, diarrhea or constipation. Denied any hematemesis, melena or hematochezia. Denied any dysuria, frequency or hematuria. Did complain of chest pain. PHYSICAL EXAMINATION: GENERAL: On arrival to the Emergency Room, the patient looked well and was clearly in no apparent respiratory distress, slightly pale, no jaundice, cyanosis, or thyromegaly. No jugular venous distension. No lower limb edema. VITAL SIGNS: Her heart rate was 75, blood pressure was 158/74, temperature was 98.2, respiratory rate 20, and oxygen saturation was 95% on room air. HEAD, EYES, EARS, NOSE AND THROAT: Showed normocephalic, atraumatic. NECK: Supple. HEART: Showed normal first and second heart sounds. No gallop, rub or murmur. CHEST: Clear to auscultation. No crepitation or rhonchi. ABDOMEN: Slightly distended, soft and nontender. NEUROLOGIC: She is awake, alert, responding appropriately. Cranial nerves intact. EXTREMITIES: She moves extremities without difficulty. She ambulates without assistance or assistive devices. LABORATORY DATA: Her lab work showed a white cell count 12,200, hemoglobin 15, hematocrit 46, MCV 91, and platelet count 287,000. Her chemistry showed a serum sodium 142, potassium 3.9, chloride 104, bicarbonate 28, anion gap of 10, BUN 15, creatinine 1.2, estimated GFR was 44 mL per minute. Her glucose was 58, calcium was 9.6. Magnesium was 1.5. Total bilirubin, AST, ALT, alkaline phosphatase were normal. Her beta-natriuretic peptide was 203 and total protein was 7.3, albumin 3.4. Lipase was 192. The patient did have 2 more sets of cardiac enzymes that showed that her troponin to be less than 0.017. Her serum triglycerides were 70, total cholesterol was 198, LDL was 89, VLDL was 14, and HDL cholesterol was 95 and the ratio was 2. ASSESSMENT AND PLAN: The patient was discharged. She was discharged home to follow with the Cardiology team as an outpatient for and arrangement has been made for her to have an outpatient nuclear stress test. ALISON WEBER MD DR: MOOK/kirstin JOB#: [id number] / [id number]
== END 2018-06-27 12:57 | disposition home or self-care (01) | DRG 313 ==
LOC: ER 12:12 → 1 SOUTH 14:18
PROVIDERS: ADMIT Internal Medicine; ATTEND Internal Medicine
DX: R07.89 Other chest pain (principal); E11.649 Type 2 diabetes mellitus with hypoglycemia without coma; E78.5 Hyperlipidemia, unspecified; E83.42 Hypomagnesemia; G31.84 Mild cognitive impairment of uncertain or unknown etiology; I10 Essential (primary) hypertension; I25.10 Atherosclerotic heart disease of native coronary artery without angina pectoris; I45.10 Unspecified right bundle-branch block; N28.9 Disorder of kidney and ureter, unspecified; Z86.73 Personal history of transient ischemic attack (TIA), and cerebral infarction without residual deficits; Z87.440 Personal history of urinary (tract) infections; Z87.891 Personal history of nicotine dependence; Z95.5 Presence of coronary angioplasty implant and graft; G89.29 Other chronic pain; I65.29 Occlusion and stenosis of unspecified carotid artery; Z88.2 Allergy status to sulfonamides; Z98.51 Tubal ligation status
CPT/HCPCS: 36415; 70450; 71045; 80053; 80061; 82550; 82947; 83690; 83735; 83880; 84484; 85025; 93005; J1815; J2405; 99285-25

== ENCOUNTER → 2018-06-29 | Outpatient (CLI) | payer MEDICARE ==
[2018-06-27 10:29] VITALS: BP 102/67
[~2018-06-29] MED LIST changes: +AMLO10TA8 PO; +DONE5TAB7 PO; +GABA600T7 PO; +INSU100C SQ; +NEBI5TAB2 PO; +POTA10TA10 PO; +REGADENOSON 0.4 MG/5 ML DISP.SYRIN. IV ONE
--- NOTE | 2018-06-29 10:56 | CARD ---
MR#: [id number] Date of Study: 06/29/2018 Ordering Physician: JOHN JOHNSON, Referring Physician: JOHN JOHNSON Tech: Padmini Aldrich RDCS APPROVED REPORT EXAM: Two-dimensional and M-mode echocardiogram with Doppler and color Doppler. Other Information Quality : GoodHR: 70bpm Rhythm : NSR INDICATION Chest Pain RISK FACTORS Hypertension 2D DIMENSIONS RVDd2.4 (2.9-3.5cm)Left Atrium(2D)3.3 (1.6-4.0cm) IVSd1.1 (0.7-1.1cm)Aortic Root(2D)2.7 (2.0-3.7cm) LVDd4.9 (3.9-5.9cm)LVOT Diameter1.8 (1.8-2.4cm) PWd0.8 (0.7-1.1cm)LVDs3.1 (2.5-4.0cm) FS (%) 35.6 %SV72.3 ml LVEF(%)64.9 (>50%) M-Mode DIMENSIONS Left Atrium(MM)3.04 (2.5-4.0cm)Aortic Root3.04 (2.2-3.7cm) Aortic Valve AoV Peak Ricci.178.7cm/sAoV VTI41.0cm AO Peak GR.12.8mmHgLVOT Peak Ricci.84.0cm/s LVOT VTI 22.63cmAO Mean GR.6mmHg Mitral Valve MV E Awuotbft807.4cm/sMV E Peak Gr.7mmHg MV DECEL [id number] A Zihsbxjn590.9cm/s MV E Mean Gr.3mmHgE/A Ratio1.0 MV A [id number] Pulmonary Valve PV Peak Imverogs93.5cm/sPV Peak Grad.4mmHg Tricuspid Valve TR P. Fuvrosol306we/sRAP MPPWQECX2ugJt TR Peak Gr.53daBoUXBX95noOw LEFT VENTRICLE The left ventricle is normal size. Proximal septal thickening is noted. The left ventricular systolic function is normal. The Ejection Fraction is 60-65%. There is normal LV segmental wall motion. RIGHT VENTRICLE The right ventricle is normal size. There is normal right ventricular wall thickness. The right ventr icular systolic function is normal. ATRIA The left atrium size is normal. The right atrium size is normal. The interatrial septum is intact wit h no evidence for an atrial septal defect or patent foramen ovale as noted on 2-D or Doppler imaging. AORTIC VALVE The aortic valve is mildly to moderately calcified. The aortic valve is trileaflet. Doppler and Color Flow revealed no significant aortic regurgitation. There is no significant aortic valvular stenosis. MITRAL VALVE Mitral annular calcification is moderate. There is no evidence of mitral valve prolapse. There is no mitral valve stenosis. Doppler and Color-flow revealed trace mitral regurgitation. TRICUSPID VALVE The tricuspid valve is normal in structure and function. Doppler and Color Flow revealed no tricuspid valve regurgitation noted. There is no tricuspid valve prolapse or vegetation. There is no tricuspid valve stenosis. PULMONIC VALVE The pulmonary valve is normal in structure and function. Doppler and Color Flow revealed no pulmonic valvular regurgitation. There is no pulmonic valvular stenosis. GREAT VESSELS The aortic root is normal in size. The ascending aorta is normal in size. The IVC is normal in size a nd collapses >50% with inspiration. PERICARDIAL EFFUSION There is no evidence of significant pericardial effusion. Critical Notification Critical Value: No <Conclusion> The left ventricular systolic function is normal. The Ejection Fraction is 60-65%. There is normal LV segmental wall motion. Doppler and Color-flow revealed trace mitral regurgitation. There is no evidence of significant pericardial effusion. Signed by : John Johnson, Electronically Approved : 06/29/2018 10:53:58
--- NOTE | 2018-06-30 10:31 | RAD ---
MR#: [id number] Date of Study: 06/29/2018 Ordering Physician: JOHN JOHNSON Referring Physician: BRAD BARRIOS Tech: RT Tyrone Walker) (N) APPROVED REPORT Test Type: Pharmacological Stress Nurse/Tech: RT Aaron (Marychuy) (N) Test Indications: chest pain Cardiac History: none Medications: see EHR Medical History: see EHR Resting ECG: SB non specific ST/T changes Resting Heart Rate: 57 bpm Resting Blood Pressure: 198/81mmHg Pretest Chest Pain: None Nurse/Tech Notes Consent: The procedure was explained to the patient in lay terms. Informed consent was witnessed. Carlos A eout was entered into [employer]. History and Stress Test performed by RT Tyrone Walker) (N) Pharm. Details Pharmacologic stress testing was performed using 0.4mg per 5ml of regadenoson given intravenously ove r 7-10 seconds. POST EXERCISE Reason for Termination: Infusion complete Max HR: 102 bpm Max Blood Pressure: 183/82mmHg Chest Pain: No. INTERPRETATION Stress EKG Conclusion: Baseline EKG showed sinus rhythm. No ischemic changes at peak stress. No arr hythmias. Imaging Protocol IMAGE PROTOCOL: Rest Tc-99m/stress Tc-99m 1 day Rest: Stress: Viability: Radiopharm.Tc99m HpbtacpdjYu84b Sestamibi Dose10.8mCi 31.5mCi Duration 20min. 15min. Img Date 06/29/2018 06/29/2018 Inj-Img Amik75obk. 60min. Rest Admin Site:IV - Right HandAdministrator: RT Aaron (Marychuy)(N) Stress Admin Site: IV - Right HandAdministrator: RT Tyrone Walker)(N) STRESS DATA End Diast. Vol.70.0mlAv. Heart Rate71.0bpm LVEDV index BSA1.0mlCardiac Output0.1L/min End Syst. Vol.18.0mlCO Index BSA3.7L/min LVESV index BSA0.0mlMyocardial Yirk556.0g Eject. Cvnwtwxv79.0% Stress Rates Pk. Fill Rate3.16EDV/secLVtime Pk. Fill 252.70msec Pk. Empty Rate4.35ESV/secLVtime Pk. Qhxnu892.29msec / Pk. Fill1.11EDV/sec Stress Scores Regional WT2.00Summed WT8.00 Regional WM0.00Summed WM0.00 Study quality was good. Left Ventricular size was Normal at Rest and Stress. Lung uptake was . Left Ventricular ejection fraction is 74%. The rest and stress images show normal perfusion, normal contraction and thickening. LV Perf. Quant 17 Seg. SSS2.00 17 Seg. SRS2.00 17 Seg. SDS2.00 Stress Defect Extent (% LAD)0.00Rest Defect Extent (% LAD)3.10Rev. Defect Extent (% LAD)0.00 Stress Defect Extent (% LCX) 10.00Rest Defect Extent (% LCX)0.00Rev. Defect Extent (% LCX)10.00 Stress Defect Extent (% RCA)0.00Rest Defect Extent (% RCA)0.00Rev. Defect Extent (% RCA)0.00 Stress Defect Extent (% ESTIVEN)1.70Rest Defect Extent (% ESTIVEN)1.70Rev. Defect Extent (% ESTIVEN)1.70 Conclusion 1. Regadenoson cardioisotope stress test did not show any evidence of ischemia or infarct. 2. Normal left ventricular systolic function with ejection fraction calculated at 74%. 3. Low risk for cardiac events. Signed by : John Johnson, Electronically Approved : 06/30/2018 10:29:20
== END | disposition home or self-care (01) ==
LOC: NM 08:31
PROVIDERS: ATTEND Internal Medicine Cardiovascular Disease
DX: R07.9 Chest pain, unspecified (principal)
CPT/HCPCS: 78452; 93017; 93306; 96374; 96375; 96376; A9500; J2785

== ENCOUNTER → 2018-09-02 | Outpatient (CLI) | payer MEDICARE ==
[~2018-09-02] MED LIST changes: +BUPIVACAINE MPF 0.25% 10 ML VIAL. ONE; +IOHEXOL 300 MG/ML 50 ML VIAL. ONE; +LIDOCAINE 1% PF 30 ML VIAL. ONE; -REGADENOSON 0.4 MG/5 ML DISP.SYRIN. IV ONE; +methylPREDNISolone ACETATE 40 MG/ML VIAL. ONE
== END | disposition home or self-care (01) ==
LOC: SURG 13:56
PROVIDERS: ATTEND Anesthesiology Pain Medicine
DX: M17.12 Unilateral primary osteoarthritis, left knee (principal); I10 Essential (primary) hypertension; E11.9 Type 2 diabetes mellitus without complications; G47.30 Sleep apnea, unspecified; K21.9 Gastro-esophageal reflux disease without esophagitis; Z85.41 Personal history of malignant neoplasm of cervix uteri; Z90.710 Acquired absence of both cervix and uterus; Z98.890 Other specified postprocedural states; Z90.49 Acquired absence of other specified parts of digestive tract; Z88.6 Allergy status to analgesic agent; Z88.8 Allergy status to other drugs, medicaments and biological substances; Z79.82 Long term (current) use of aspirin; Z79.899 Other long term (current) drug therapy; Z79.4 Long term (current) use of insulin; Z79.01 Long term (current) use of anticoagulants
CPT/HCPCS: 20610; 77002; J1030; J2001; J3490; Q9967; 20611

== ENCOUNTER → 2019-01-12 | Outpatient (CLI) | payer MEDICARE ==
[~2019-01-12] MED LIST changes: -BUPIVACAINE MPF 0.25% 10 ML VIAL. ONE; -IOHEXOL 300 MG/ML 50 ML VIAL. ONE; -LIDOCAINE 1% PF 30 ML VIAL. ONE; -methylPREDNISolone ACETATE 40 MG/ML VIAL. ONE
--- NOTE | 2019-01-12 17:01 | RAD ---
EXAM: Paredes scale and color Doppler renal artery sonogram. HISTORY: Severe hypertension. TECHNIQUE: Paredes scale and color Doppler sonographic imaging of the kidneys and renal arteries with spectral waveform analysis was performed. COMPARISON: None. FINDINGS: The right kidney measures 9.2 cm owkt-ps-qgpy. The left kidney measures 9.9 cm ooke-wd-fhms. No solid or cystic renal lesion is seen. There is no hydronephrosis. The proximal left renal artery is obscured. The peak systolic velocity within the visualized left renal artery is 71 cm/s. The peak systolic velocity within the right renal artery is 157 cm/s. There are normal renal artery to aorta velocity ratios. The bladder is unremarkable. There is incidental hepatic steatosis. IMPRESSION: 1. No Doppler evidence of greater than 60% stenosis within the renal arteries. 2. Unremarkable grayscale evaluation of the kidneys. Electronically signed by: Ct Garrido MD (01/12/2019 4:58 PM) [id number]
== END | disposition home or self-care (01) ==
LOC: US 14:40
PROVIDERS: ATTEND Psychiatry & Neurology Neurology
DX: I10 Essential (primary) hypertension (principal); K76.0 Fatty (change of) liver, not elsewhere classified
CPT/HCPCS: 76770

== ENCOUNTER → 2019-04-29 | Outpatient (CLI) | payer MEDICARE ==
--- NOTE | 2019-04-29 16:33 | RAD ---
EXAM: Right great toe, 2 views. HISTORY: Pain. COMPARISON: None. FINDINGS: 2 views of the right great toe are obtained. There is no fracture, dislocation or subluxation. There is lucency along the plantar aspect of the first distal phalanx likely due to an osseous ridge. No clear cortical defect or erosion is seen. IMPRESSION: No acute osseous finding or convincing radiographic evidence of osteomyelitis. Electronically signed by: Ct Garrido MD (04/29/2019 4:30 PM) [place] [id number]
== END | disposition home or self-care (01) ==
LOC: PMG 15:24
PROVIDERS: ATTEND Physician Assistant
DX: L08.89 Other specified local infections of the skin and subcutaneous tissue (principal)
CPT/HCPCS: 73660

== ENCOUNTER → 2019-10-13 | Outpatient (CLI) | payer MEDICARE ==
--- NOTE | 2019-10-13 15:15 | RAD ---
3 views bilateral standing HISTORY: Pain for one year AP and lateral standing views were obtained as well as bilateral sunrise views There is degenerative changes of all 3 compartments with marginal spurring. There is marked loss of joint space in the medial compartment on the left with bone on bone. There is no lytic destructive changes. There is arterial calcination bilaterally. IMPRESSION: 1. Tricompartmental osteoarthrosis bilaterally. 2. Osteoarthrosis is severe in the medial compartment on the left with bone on bone. Electronically signed by: Edvin Dowd III, MD (10/13/2019 3:12 PM) [id number]
== END | disposition home or self-care (01) ==
LOC: DXRAD 13:07
PROVIDERS: ATTEND Orthopaedic Surgery
DX: M17.0 Bilateral primary osteoarthritis of knee (principal)
CPT/HCPCS: 73560; 73565

== ENCOUNTER 2021-01-29 11:14 | Emergency (ER) | payer MEDICARE ==
[~2021-01-29] VITALS: Ht 160 cm; Wt 61.3 kg
[~2021-01-29 11:14] MED LIST changes: +AMLO-187 PO; -AMLO10TA8 PO
[2021-01-29 12:11] LABS: BASO % 0 % (0-3); EOS # 0.1 x10^3/uL (0.0-0.7); EOS % 1 % (0-3); HEMATOCRIT 33.3 % (36.0-47.0); HEMOGLOBIN 10.8 g/dL (12.0-15.5); LYMPH # 0.4 x10^3/uL (1.0-4.8); LYMPH % 4 % (24-48); MEAN CORPUSCULAR HEMOGLOBIN 29 pg (25-35); MEAN CORPUSCULAR HGB CONC 33 g/dL (31-37); MEAN CORPUSCULAR VOLUME 90 fL (79-100); MONO # 0.7 x10^3/uL (0.0-1.1); MONO % 8 % (0-9); NEUT # 7.5 x10^3uL (1.8-7.7); NEUT % 87 % (31-73); PLATELET COUNT 155 x10^3/uL (140-400); RED BLOOD COUNT 3.69 x10^6/uL (3.50-5.40); RED CELL DISTRIBUTION WIDTH 14.2 % (11.5-14.5); WHITE BLOOD COUNT 8.6 x10^3/uL (4.0-11.0)
--- NOTE | 2021-01-29 12:11 | EKG ---
[address] [address] Test Date: 2021-01-29 Test Time: 11:47:36 Pat Name: AUSTIN RAZA Department: Room: Gender: F Mat Linker: SULEMA : [id number] Requested By: DENNY CAMPBELL Order Number: [id number] Reading MD: Xiang Phma MD Measurements Intervals [place] Rate: 73 P: 53 NH: 156 QRS: 24 QRSD: 102 T: 16 QT: 408 QTc: 453 Interpretive Statements SINUS RHYTHM Electronically Signed On 01-31-2021 9:15:09 CDT by Xiang Pham MD
--- NOTE | 2021-01-29 12:15 | RAD ---
INDICATION: Reason: HYPOGLYCEMIA / Spl. Instructions: / History: COMPARISON: June 2018 FINDINGS: Single view of chest obtained. No definite lobar infiltrate. Cardiac silhouette is not enlarged with calcific atherosclerosis seen. IMPRESSION: * No focal airspace consolidation or edema. Electronically signed by: Javon Nuñez MD (01/29/2021 12:13 PM) [id number]
--- NOTE | 2021-01-29 12:27 | PHYS DOC ---
Past History Past Medical History: CVA, Diabetes, Hypertension, Kidney Infection, UTI, Other Past Surgical History: Tubal ligation, Other Additional Past Surgical Histo: angioplasty Smoking: Quit Greater Than 1 Year Alcohol Use: None Drug Use: None Adult General Chief Complaint Chief Complaint: ALTERED MENTAL STATUS [facility] HPI Patient is a 70-year-old female presenting from home via EMS for hypoglycemia. History somewhat limited from patient, majority obtained from who lives at home with patient and relayed to me via EMS. Patient apparently not been eating right and has had decreased urine output for past 36 hours per without any major changes in health, medication doses, sick contacts or recent travel. Patient was given typical amount of nighttime Lantus insulin for her ty pe 2 diabetes and on waking up this morning was less arousable than usual. reports her sugars are typically higher and was concerned about patient so he called EMS. On arrival, patient was alert and oriented to person and place only, fingerstick blood glucose was 50. Patient was administered 250 mL D10 and bolused 500 mL lactic Ringer's with improvement in fingerstick blood sugar to approximately 100. Review of Systems Review of Systems Fourteen body systems of review of systems have been reviewed. See HPI for pertinent positives and negative responses, other yanes all other systems are neg ative, non-pertinent or non-contributory Allergies Allergies Allergies Coded Allergies Type Severity Reaction Last Updated Verified Sulfa (Sulfonamide Antibiotics) Allergy Intermediate 01/29/21 Yes Physical Exam Physical Exam Constitutional: Age-appropriate, appears thin and tired, no signs of trauma HENT: Normocephalic, atraumatic, bilateral external ears normal, oropharynx dry, no oral exudates, nose normal. Eyes: PERRLA, EOMI, conjunctiva normal, no discharge. Neck: Normal range of motion, no tenderness, supple, no stridor. Cardiovascular: Heart rate regular, sinus rhythm, no murmurs rubs or gallops Lungs & Thorax: Bilateral breath sounds clear to auscultation Abdomen: Bowel sounds normal, soft, no tenderness, no masses, no pulsatile masses. Nonsurgical abdomen, no peritoneal signs Skin: Warm, dry, no erythema, no rash. Back: No tenderness, no CVA tenderness. Extremities: No tenderness, no cyanosis, no clubbing, ROM intact, no edema. Neurologic: Alert and oriented X 3, cranial nerves II through XII intact, normal motor & sensory function, no focal deficits noted. Psychologic: Affect normal, judgement normal, mood normal. Current Patient Data Vital Signs Vital Signs Date Time Temp Pulse Resp B/P (MAP) Pulse Ox O2 Delivery O2 Flow Rate FiO2 01/29/21 11:26 97.6 74 16 140/62 97 Room Air Lab Results Laboratory Tests Test 01/29/21 11:22 01/29/21 11:45 Glucose (Fingerstick) 179 mg/dL (70-99) H White Blood Count 8.6 x10^3/uL (4.0-11.0) Red Blood Count 3.69 x10^6/uL (3.50-5.40) Hemoglobin 10.8 g/dL (12.0-15.5) L Hematocrit 33.3 % (36.0-47.0) L Mean Corpuscular Volume 90 fL (79-100) Mean Corpuscular Hemoglobin 29 pg (25-35) Mean Corpuscular Hemoglobin Concent 33 g/dL (31-37) Red Cell Distribution Width 14.2 % (11.5-14.5) Platelet Count 155 x10^3/uL (140-400) Neutrophils (%) (Auto) 87 % (31-73) H Lymphocytes (%) (Auto) 4 % (24-48) L Monocytes (%) (Auto) 8 % (0-9) Eosinophils (%) (Auto) 1 % (0-3) Basophils (%) (Auto) 0 % (0-3) Neutrophils # (Auto) 7.5 x10^3uL (1.8-7.7) Lymphocytes # (Auto) 0.4 x10^3/uL (1.0-4.8) L Monocytes # (Auto) 0.7 x10^3/uL (0.0-1.1) Eosinophils # (Auto) 0.1 x10^3/uL (0.0-0.7) Basophils # (Auto) 0.0 x10^3/uL (0.0-0.2) EKG EKG EKG ordered and interpreted by myself at 1201 hrs. is sinus rhythm at 73 bpm, unremarkable intervals, no axis deviation, mildly peaked T waves in lateral leads V4, V5 and V6 without obvious ischemic findings, no STEMI Radiology/Procedures Radiology/Procedures INDICATION: Reason: HYPOGLYCEMIA / Spl. Instructions: / History: COMPARISON: June 2018 FINDINGS: Single view of chest obtained. No definite lobar infiltrate. Cardiac silhouette is not enlarged with calcific atherosclerosis seen. IMPRESSION: * No focal airspace consolidation or edema. Electronically signed by: Javon Nuñez MD (01/29/2021 12:13 PM) [id number] Heart Score C/O Chest Pain: No HEART Score for Chest Pain: HEART Score for Chest Pain Response (Comments) Value History Slighlty/Non-Suspicious 0 ECG Nonspecific Repolarizatio 1 Age > 65 2 Risk Factors >3 Risk Factors or Hx CAD 2 Troponin < Normal Limit 0 Total 5 Risk Factors: Risk Factors: DM, Current or recent (<one month) smoker, HTN, HLP, family history of CAD, obesity. Risk Scores: Risk Factors: DM, Current or recent (<one month) smoker, HTN, HLP, family history of CAD, obesity. Course & Med Decision Making Course & Med Decision Making Airway patent, breathing unlabored, IV access and vitals obtained with repeat fingerstick blood glucose greater than 100 HPI and physical exam initially nonconcerning. EKG and subsequent comprehensive ER work-up concerning for acute renal failure. Patient reports seeing block layer in the past but is failed outpatient follow-up for past 5 years. Denies lisinopril use or other known nephrotoxic agents Calcium gluconate, 10 units IV insulin with subsequent dextrose, x1 albuterol nebulized treatment in addition to a total of x2 L of normal saline administered patient while in ER setting Nephrology attending at [facility] contacted, patient established with them but had not been seen in the past 5 years. Patient was borderline CKD 3/4 at that time, no history hemodialysis. They agreed to treatment so far in need for hospital transfer I contacted hospitalist at [facility] and discussed need for hospital transfer, they agreed to plan of care so far and accepted patient for transfer but there were issues and patient transfer initially denied by hospital administration due to capacity issues As such, my staff and I attempted to contact numerous hospitals in the [place] area. Patient was denied transfer to [facility], [facility], [facility], [facility], all other [place] [facility], and even [facility] for hospital transfer due to capacity issues [facility] was contacted and importance of patient transfer stress due to likely need for hemodialysis. Patient was ultimately accepted and transferred over to their ICU for higher acuity of care I updated patient and on need for hospital transfer, need for ICU level care with nephrology consultation and potential need for hemodialysis given gross electrolyte and kidney disturbance, they were amenable. All questions and concerns addressed prior to hospital transfer Critical Care Time This patient required critical care. Due to the fact that the patient required a significant amount of one on one physician - patient contact time, ordering and review of studies, arranging urgent treatment with development of a management plan, evaluation of patients response to treatment with frequent reassessments, and discussions with other providers this patient required 45 minutes of critical care time. Critical care time was indicated due to the inherent instability and/or potential for instability in this patient. The critical care time that is allocated to this patient is above and beyond any time spent on any other billable procedures performed on this patient. Dragon Disclaimer Dragon Disclaimer This electronic medical record was generated, in whole or in part, using a voice recognition dictation system. Departure Departure: Impression: Primary Impression: Renal failure (ARF), acute on chronic Additional Impression: Type 2 diabetes mellitus with hypoglycemia without coma, with long-term current use of insulin Disposition: 02 SHORT TERM HOSPITAL Admitting Physician: Other (dr schafer) Referrals: MELISSA GERBER MD (PCP) Problem Qualifiers DENNY CAMPBELL DO Jan 29, 2021 12:27
[2021-01-29 13:07] LABS: ALBUMIN/GLOBULIN RATIO 0.7 (1.0-1.7); CALCIUM 7.8 mg/dL (8.5-10.1); CREATININE 21.3 mg/dL (0.6-1.0); GFR 1.6; TOTAL BILIRUBIN 0.4 mg/dL (0.2-1.0); TOTAL PROTEIN 7.1 g/dL (6.4-8.2)
[2021-01-29 13:25] LABS: POTASSIUM 6.2 mmol/L (3.5-5.1)
[2021-01-29] MEDS ORDERED: CALCIUM GLUCONATE 1,000 MG/10 ML VIAL IV ONE (13:45)
[2021-01-29] MEDS ORDERED: INSULIN REGULAR 100 UNIT/ML 3ML VIAL. IV ONE ×2 (13:45→15:15)
[2021-01-29] MEDS ORDERED: DEXTROSE 50% 25 GM / 50ML DISP.SYRIN. IV ONE ×2 (13:45→15:15)
[2021-01-29] MEDS ORDERED: IV NORMAL SALINE 1,000ML 1,000 ML IV ONE ×2 (13:45→15:00)
--- NOTE | 2021-01-29 15:30 | NUR ---
NO ICU BEDS AVAILABLE AT [facility],,[facility],
[2021-01-29 17:55] LABS: CALCIUM 7.6 mg/dL (8.5-10.1); CREATININE 19.9 mg/dL (0.6-1.0); GFR 1.7; POTASSIUM 5.5 mmol/L (3.5-5.1)
[2021-01-29] MEDS ORDERED: SODIUM BICARB ADULT 8.4% 50 MEQ/50 ML DISP.SYRIN. IV ONE (18:45)
[2021-01-29] MEDS ORDERED: IPRATRPIUM/ALBUTEROL 0.5/2.5MG 3 ML NEBU. NEB ONE (18:45)
[2021-01-29 20:19] VITALS: BP 118/85
== END 2021-01-29 20:53 | disposition short-term general hospital (02) ==
LOC: ER 11:14
DX: N17.9 Acute kidney failure, unspecified (principal); I12.9 Hypertensive chronic kidney disease with stage 1 through stage 4 chronic kidney disease, or unspecified chronic kidney disease; E11.22 Type 2 diabetes mellitus with diabetic chronic kidney disease; N18.9 Chronic kidney disease, unspecified; E11.649 Type 2 diabetes mellitus with hypoglycemia without coma; Z20.822 Contact with and (suspected) exposure to COVID-19; Z87.440 Personal history of urinary (tract) infections; Z87.891 Personal history of nicotine dependence; Z86.73 Personal history of transient ischemic attack (TIA), and cerebral infarction without residual deficits; Z98.51 Tubal ligation status; Z98.61 Coronary angioplasty status; Z88.2 Allergy status to sulfonamides
CPT/HCPCS: 36415; 71045; 80048; 80053; 82947; 84484; 85025; 87426; 93005; 94640; 96361; 96374; 96375; 96376; 99291; J0610; J1815; J7030; U0003

== ENCOUNTER 2021-03-08 13:02 | Emergency (ER) | payer MEDICARE ==
[~2021-03-08] VITALS: Ht 160 cm; Wt 61.3 kg
--- NOTE | 2021-03-08 13:13 | PHYS DOC ---
Past History Past Medical History: CVA, Diabetes, Hypertension, Kidney Infection, Renal Failure, UTI, Other Past Surgical History: Tubal ligation, Other Additional Past Surgical Histo: angioplasty Smoking: Quit Greater Than 1 Year Alcohol Use: None Drug Use: None Adult General Chief Complaint Chief Complaint: HYPOGLYCEMIA HPI HPI Patient is a 70-year-old female presenting via EMS for hypoglycemia. Patient was at home and was reported to be acting fatigued, she stated to family members that she was tired and was going to go down to take a nap. Patient was ambulating up the stairs and stopped because she stated she felt weak. Family members watched her sit on the stairs for several minutes which concerned them prompting them to call EMS. On arrival, patient was found to be hemodynamically stable but her [id number] glucose was 25. IV access was obtained and patient was given 100 mL of D10 solution with improvement in fingerstick blood glucose to 104. The drip was then turned off and when rechecked 20 minutes later patient's fingerstick blood glucose was 40. They subsequently opened and allowed the remaining D10 solution from the 250 mL bag to run. On arrival, patient's blood glucose 127. She has no immediate complaints. She states she has hypoglycemic episodes often but denies any recent trauma, ingestions, and changes in medication or other factors that might have caused her hypoglycemic spell today. She states she is tired but otherwise has no major complaints. Of note, patient was seen at our facility by myself 5 weeks ago and subsequently transferred for similar presentation, patient was hypoglycemic and transported in via EMS and subsequently found to be in acute renal failure and transported out for nephrology consultation. Patient states she was diagnosed with stage V kidney disease, did not require dialysis, is not on hospice care Review of Systems Review of Systems Fourteen body systems of review of systems have been reviewed. See HPI for pertinent positives and negative responses, other yanes all other systems are negative, non-pertinent or non-contributory Allergies Allergies Allergies Coded Allergies Type Severity Reaction Last Updated Verified Sulfa (Sulfonamide Antibiotics) Allergy Intermediate 01/29/21 Yes Physical Exam Physical Exam Constitutional: Well developed, well nourished, no acute distress, non-toxic appearance. HENT: Normocephalic, atraumatic, bilateral external ears normal, oropharynx dry, no oral exudates, nose normal. Eyes: PERRLA, EOMI, conjunctiva normal, no discharge. Neck: Normal range of motion, no tenderness, supple, no stridor. Cardiovascular: Heart rate regular, sinus rhythm, no murmurs rubs or gallops, dialysis cath present in right upper outer chest and overall well-appearing Lungs & Thorax: Bilateral breath sounds clear to auscultation Abdomen: Bowel sounds normal, soft, no tenderness, no masses, no pulsatile masses. Nonsurgical abdomen, no peritoneal signs Skin: Warm, dry, no erythema, no rash. Back: No tenderness, no CVA tenderness. Extremities: No tenderness, no cyanosis, no clubbing, ROM intact, no edema. Neurologic: Alert and oriented to person only, not place or time. Cranial nerves II through XII intact, normal motor & sensory function, no focal deficits noted. Psychologic: Odd normal, judgement normal, mood normal. Current Patient Data Vital Signs Vital Signs Date Time Temp Pulse Resp B/P (MAP) Pulse Ox O2 Delivery O2 Flow Rate FiO2 03/08/21 13:06 98.2 60 16 135/57 (83) 95 Room Air Lab Results Laboratory Tests Test 03/08/21 13:06 Glucose (Fingerstick) 109 mg/dL (70-99) H EKG EKG EKG ordered and interpreted by myself at 1341 hrs. as sinus rhythm at 62 bpm, prolonged QTC at 471 otherwise unremarkable intervals, no axis deviation, no acute ischemic findings, no STEMI Radiology/Procedures Radiology/Procedures AP chest. HISTORY: Hypoglycemia AP view was taken of the chest. The right dialysis catheter in good position. There is no pneumothorax. Heart is normal in size. There is a slight interstitial prominence, mild vascular congestion is possible. There are no con fluent infiltrates. IMPRESSION: 1. Dialysis catheter in position. 2. Mild vascular congestion. 3. No confluent infiltrates. Electronically signed by: Ananth De La Rosa MD (03/08/2021 1:39 PM) [facility] Heart Score C/O Chest Pain: No HEART Score for Chest Pain: HEART Score for Chest Pain Response (Comments) Value History Slighlty/Non-Suspicious 0 ECG Normal 0 Age > 65 2 Risk Factors >3 Risk Factors or Hx CAD 2 Troponin >3 x Normal Limit 2 Total 6 Risk Factors: Risk Factors: DM, Current or recent (<one month) smoker, HTN, HLP, family history of CAD, obesity. Risk Scores: Risk Factors: DM, Current or recent (<one month) smoker, HTN, HLP, family history of CAD, obesity. Course & Med Decision Making Course & Med Decision Making ABCs unremarkable, POC glucose 104 on arrival Remaining 250 mL IV D10 solution administered. HPI, physical examination and comprehensive ER work-up obtained ER work-up concerning for hypokalemia, elevated creatinine, and elevated troponin Patient shrugs and says she is unsure when discussing her HD catheter and when she last received HD/if this is a scheduled occurrence. She cannot tell me when she last got hemodialysis Patient denies any chest pain at present Patient's fingerstick glucose was rechecked occasionally throughout ER visit and stable. States she took her typical insulin at home but has not eaten at all today, likely the cause of patient's presenting hypoglycemia Stepdaughter later presented to ER. States patient does have underlying dementia. [facility] patient has been going to hemodialysis Thursday, last session was yesterday with next session planned tomorrow. Admits she takes insulin and is forgetful about eating which is likely cause of her hypoglycemia I updated her on need for hospital transfer. [facility]call [facility]ist who ultimately accepted patient under his care. Stepdaughter inpatient notified of decision for transfer and were amenable. They were notified of the findings concerning for hypokalemia, hypoglycemia and elevated troponin and an end-stage renal disease patient on HD Dragon Disclaimer Dragon Disclaimer This electronic medical record was generated, in whole or in part, using a voice recognition dictation system. Departure Departure: Impression: Primary Impression: Hypokalemia Additional Impressions: Elevated troponin Hypoglycemia associated with type 2 diabetes mellitus ESRD (end stage renal disease) Dementia Disposition: 02 SHORT TERM HOSPITAL ([facility]) Admitting Physician: Other (DR CARTAGENA) Condition: STABLE Referrals: MELISSA GERBER MD (PCP) Problem Qualifiers DENNY CAMPBELL DO Mar 08, 2021 13:13
[2021-03-08 13:33] LABS: BASO % 1 % (0-3); EOS # 0.3 x10^3/uL (0.0-0.7); EOS % 5 % (0-3); HEMATOCRIT 25.1 % (36.0-47.0); HEMOGLOBIN 8.2 g/dL (12.0-15.5); LYMPH # 0.7 x10^3/uL (1.0-4.8); LYMPH % 12 % (24-48); MEAN CORPUSCULAR HEMOGLOBIN 29 pg (25-35); MEAN CORPUSCULAR HGB CONC 33 g/dL (31-37); MEAN CORPUSCULAR VOLUME 90 fL (79-100); MONO % 16 % (0-9); NEUT # 4.1 x10^3uL (1.8-7.7); NEUT % 67 % (31-73); PLATELET COUNT 203 x10^3/uL (140-400); RED CELL DISTRIBUTION WIDTH 15.3 % (11.5-14.5); WHITE BLOOD COUNT 6.2 x10^3/uL (4.0-11.0)
--- NOTE | 2021-03-08 13:41 | RAD ---
AP chest. HISTORY: Hypoglycemia AP view was taken of the chest. The right dialysis catheter in good position. There is no pneumothora x. Heart is normal in size. There is a slight interstitial prominence, mild vascular congestion is po ssible. There are no confluent infiltrates. IMPRESSION: 1. Dialysis catheter in position. 2. Mild vascular congestion. 3. No confluent infiltrates. Electronically signed by: Ananth De La Rosa MD (03/08/2021 1:39 PM) [facility]
[2021-03-08 13:48] LABS: ALBUMIN 2.5 g/dL (3.4-5.0); TOTAL PROTEIN 6.4 g/dL (6.4-8.2)
[2021-03-08 13:49] LABS: ALBUMIN/GLOBULIN RATIO 0.6 (1.0-1.7); CALCIUM 8.2 mg/dL (8.5-10.1); CREATININE 3.2 mg/dL (0.6-1.0); GFR 14.2; MAGNESIUM 1.8 mg/dL (1.8-2.4); PHOSPHORUS 2.6 mg/dL (2.6-4.7); TOTAL BILIRUBIN 0.3 mg/dL (0.2-1.0)
[2021-03-08 13:52] LABS: POTASSIUM 2.5 mmol/L (3.5-5.1)
[2021-03-08] MEDS ORDERED: POTASSIUM CHLORIDE 20 MEQ TABLET.ER. PO ONE ×3 (14:00→17:45)
[2021-03-08] MEDS ORDERED: ASPIRIN CHEWABLE 81 MG TABLET. PO ONE (16:15)
[2021-03-08 17:04] VITALS: BP 125/53
--- NOTE | 2021-03-08 23:12 | EKG ---
[address] [address] Test Date: 2021-03-08 Test Time: 13:35:45 Pat Name: AUSTIN RAZA Department: Room: Gender: F Project Development Leader: DAMIEN : 1950 Requested By: DENNY CAMPBELL Order Number: [id number] Reading MD: Xiang Pham MD Measurements Intervals [place] Rate: 62 P: 41 NH: 172 QRS: 16 QRSD: 90 T: 34 QT: 462 QTc: 471 Interpretive Statements SINUS RHYTHM PROLONGED QT CONSIDER SEPTAL ISCHEMIA Electronically Signed On 03-11-2021 10:41:19 CDT by Xiang Pham MD
== END 2021-03-08 19:24 | disposition short-term general hospital (02) ==
LOC: ER 13:02
DX: E11.649 Type 2 diabetes mellitus with hypoglycemia without coma (principal); E87.6 Hypokalemia; E11.22 Type 2 diabetes mellitus with diabetic chronic kidney disease; I12.0 Hypertensive chronic kidney disease with stage 5 chronic kidney disease or end stage renal disease; N18.6 End stage renal disease; Z87.891 Personal history of nicotine dependence; Z98.51 Tubal ligation status; Z86.73 Personal history of transient ischemic attack (TIA), and cerebral infarction without residual deficits; Z20.822 Contact with and (suspected) exposure to COVID-19
CPT/HCPCS: 36415; 71045; 80053; 82947; 83735; 84100; 84484; 85025; 85610; 85730; 87426; 93005; 99285; C9803; U0003

== ENCOUNTER → 2021-03-19 | Outpatient (CLI) | payer MEDICARE ==
[2021-03-08 17:04] VITALS: BP 125/53
[2021-03-19 18:45] LABS: BASO # 0.1 x10^3/uL (0.0-0.2); BASO % 1 % (0-3); EOS # 0.4 x10^3/uL (0.0-0.7); EOS % 6 % (0-3); HEMATOCRIT 26.7 % (36.0-47.0); HEMOGLOBIN 8.7 g/dL (12.0-15.5); LYMPH # 1.3 x10^3/uL (1.0-4.8); LYMPH % 18 % (24-48); MEAN CORPUSCULAR HEMOGLOBIN 29 pg (25-35); MEAN CORPUSCULAR HGB CONC 33 g/dL (31-37); MEAN CORPUSCULAR VOLUME 90 fL (79-100); MONO # 0.9 x10^3/uL (0.0-1.1); MONO % 12 % (0-9); NEUT # 4.5 x10^3uL (1.8-7.7); NEUT % 63 % (31-73); RED BLOOD COUNT 2.96 x10^6/uL (3.50-5.40); RED CELL DISTRIBUTION WIDTH 15.5 % (11.5-14.5); WHITE BLOOD COUNT 7.1 x10^3/uL (4.0-11.0)
[2021-03-19 19:27] LABS: PLATELET COUNT 209 x10^3/uL (140-400)
== END ==
LOC: SPEC 17:11
PROVIDERS: ATTEND Internal Medicine
DX: I12.0 Hypertensive chronic kidney disease with stage 5 chronic kidney disease or end stage renal disease (principal); N18.6 End stage renal disease; Z99.2 Dependence on renal dialysis
CPT/HCPCS: 36415; 85025

== ENCOUNTER → 2021-03-26 | Outpatient (CLI) | payer MEDICARE ==
[2021-03-08 17:04] VITALS: BP 125/53
[2021-03-26 11:31] LABS: BASO # 0.1 x10^3/uL (0.0-0.2); BASO % 1 % (0-3); EOS # 0.6 x10^3/uL (0.0-0.7); EOS % 10 % (0-3); HEMATOCRIT 28.7 % (36.0-47.0); HEMOGLOBIN 9.4 g/dL (12.0-15.5); LYMPH # 1.4 x10^3/uL (1.0-4.8); LYMPH % 21 % (24-48); MEAN CORPUSCULAR HEMOGLOBIN 29 pg (25-35); MEAN CORPUSCULAR HGB CONC 33 g/dL (31-37); MEAN CORPUSCULAR VOLUME 89 fL (79-100); MONO # 0.7 x10^3/uL (0.0-1.1); MONO % 11 % (0-9); NEUT # 3.8 x10^3uL (1.8-7.7); NEUT % 58 % (31-73); PLATELET COUNT 213 x10^3/uL (140-400); RED BLOOD COUNT 3.22 x10^6/uL (3.50-5.40); WHITE BLOOD COUNT 6.6 x10^3/uL (4.0-11.0)
[2021-03-26 12:36] LABS: ALBUMIN 3.1 g/dL (3.4-5.0); ALBUMIN/GLOBULIN RATIO 0.9 (1.0-1.7); CALCIUM 8.8 mg/dL (8.5-10.1); CREATININE 5.3 mg/dL (0.6-1.0); POTASSIUM 3.1 mmol/L (3.5-5.1); TOTAL BILIRUBIN 0.2 mg/dL (0.2-1.0); TOTAL PROTEIN 6.7 g/dL (6.4-8.2)
== END ==
LOC: SPEC 10:21
PROVIDERS: ATTEND Internal Medicine
DX: E11.22 Type 2 diabetes mellitus with diabetic chronic kidney disease (principal); N18.6 End stage renal disease; G93.41 Metabolic encephalopathy
CPT/HCPCS: 36415; 80053; 85025

== ENCOUNTER → 2021-04-01 | Outpatient (CLI) | payer MEDICARE ==
[2021-03-08 17:04] VITALS: BP 125/53
[~2021-04-01] MED LIST changes: +HYDR-2155 PO
[2021-04-01 11:11] LABS: HEMOGLOBIN 10.1 g/dL (12.0-15.5); RED BLOOD COUNT 3.45 x10^6/uL (3.50-5.40); RED CELL DISTRIBUTION WIDTH 15.8 % (11.5-14.5); WHITE BLOOD COUNT 6.8 x10^3/uL (4.0-11.0)
[2021-04-01 16:08] LABS: ALBUMIN 3.4 g/dL (3.4-5.0); ALBUMIN/GLOBULIN RATIO 0.9 (1.0-1.7); CALCIUM 9.1 mg/dL (8.5-10.1); CREATININE 4.3 mg/dL (0.6-1.0); GFR 10.1; POTASSIUM 3.1 mmol/L (3.5-5.1); TOTAL BILIRUBIN 0.2 mg/dL (0.2-1.0); TOTAL PROTEIN 7.1 g/dL (6.4-8.2)
== END ==
LOC: SPEC 10:48
PROVIDERS: ATTEND Family Medicine
DX: I12.0 Hypertensive chronic kidney disease with stage 5 chronic kidney disease or end stage renal disease (principal); N18.9 Chronic kidney disease, unspecified
CPT/HCPCS: 36415; 80053; 85027

== ENCOUNTER → 2021-04-10 | Outpatient (CLI) | payer MEDICARE ==
[2021-04-10 12:25] LABS: ALBUMIN 3.3 g/dL (3.4-5.0); ALBUMIN/GLOBULIN RATIO 0.9 (1.0-1.7); CALCIUM 8.7 mg/dL (8.5-10.1); CREATININE 3.3 mg/dL (0.6-1.0); GFR 13.7; POTASSIUM 3.3 mmol/L (3.5-5.1); TOTAL BILIRUBIN 0.2 mg/dL (0.2-1.0); TOTAL PROTEIN 6.9 g/dL (6.4-8.2)
[2021-04-10 12:26] LABS: HEMATOCRIT 32.3 % (36.0-47.0); HEMOGLOBIN 10.6 g/dL (12.0-15.5); RED BLOOD COUNT 3.56 x10^6/uL (3.50-5.40); WHITE BLOOD COUNT 5.6 x10^3/uL (4.0-11.0)
== END ==
LOC: SPEC 11:32
PROVIDERS: ATTEND Internal Medicine
DX: I20.9 Angina pectoris, unspecified (principal)
CPT/HCPCS: 36415; 80053; 85027

== ENCOUNTER 2021-04-19 16:55 | Emergency (ER) | payer MEDICARE ==
[~2021-04-19] VITALS: Ht 160 cm; Wt 61.3 kg
[~2021-04-19 16:55] MED LIST changes: -HYDR-2155 PO
[2021-04-19 17:17] VITALS: BP 166/85
--- NOTE | 2021-04-19 17:40 | PHYS DOC ---
Past History Past Medical History: CVA, Diabetes, Hypertension, Kidney Infection, Renal Failure, UTI, Other (АЛЕКСАНДР ELIZABETH APRN) Past Surgical History: Tubal ligation, Other Additional Past Surgical Histo: angioplasty (АЛЕКСАНДР ELIZABETH APRN) Smoking: Quit Greater Than 1 Year Alcohol Use: None Drug Use: None (АЛЕКСАНДР ELIZABETH APRN) General Adult EDM: Chief Complaint: KNEE INJURY HPI: HPI: Patient is a 70-year-old female who presents emergency department for left knee pain and swelling. Patient reports that she stood up and her knee gave out. She rates her pain 8 out of 10. No treatment prior to arrival. Patient denies any injury. She reports that when her knee gave out she did not hit her head or lose consciousness. She denies being on blood thinner. Patient reports decreased ability to fully extend leg due to pain she denies any decreased sensation to her extremity. (АЛЕКСАНДР ELIZABETH APRN) Review of Systems: Review of Systems: Musculoskeletal: See HPI Integument: See HPI Neurologic: See HPI (АЛЕКСАНДР ELIZABETH APRN) Allergies: Allergies: Allergies Coded Allergies Type Severity Reaction Last Updated Verified Sulfa (Sulfonamide Antibiotics) Allergy Intermediate 01/29/21 Yes (АЛЕКСАНДР ELIZABETH APRN) Physical Exam: PE: Constitutional: Well developed, well nourished, no acute distress, non-toxic appearance. [] HENT: Normocephalic, atraumatic, bilateral external ears normal, oropharynx moist, no oral exudates, nose normal. [] Eyes: PERRL, EOMI, conjunctiva normal, no discharge. [] Neck: Normal range of motion, no stridor Cardiovascular: Normal peripheral perfusion Lungs & Thorax: Normal work of breathing, no tachypnea Abdomen: Soft and flat Skin: Warm, dry, no erythema, no rash. [] Back: Normal range of motion Extremities: No tenderness, no cyanosis, no clubbing, ROM intact, no edema. Left knee: Swelling noted to anterior aspect of the left knee, decreased extension due to pain, neuro intact, no obvious wounds Neurologic: Alert and oriented X 3, normal motor function, normal sensory function, no focal deficits noted. [] Psychologic: Affect normal, judgement normal, mood normal. [] (АЛЕКСАНДР ELIZABETH APRN) Current Patient Data: Vital Signs: Vital Signs Date Time Temp Pulse Resp B/P (MAP) Pulse Ox O2 Delivery O2 Flow Rate FiO2 04/19/21 17:17 100 18 166/85 (112) 92 (АЛЕКСАНДР ELIZABETH APRN) EKG: EKG: [] (АЛЕКСАНДР ELIZABETH APRN) Radiology/Procedures: Radiology/Procedures: []PROCEDURE: KNEE LEFT 3V Exam: Left knee 3 views INDICATION: Knee injury TECHNIQUE: Frontal, lateral and oblique views the left knee Comparisons: None FINDINGS: Minimally displaced fracture of the patella. There is a large suprapatellar effusion. Diffuse osteopenia. Moderate tricompartmental osteoarthritic change. IMPRESSION: Minimally displaced fracture of the patella not well assessed on x-ray. Electronically signed by: Otis Neri MD (04/19/2021 5:43 PM) [facility] DICTATED AND SIGNED BY: OTIS NERI MD DATE: 04/19/211741 CC: АЛЕКСАНДР ELIZABETH APRN; MELISSA GERBER MD ~MTH0 0 (АЛЕКСАНДР ELIZABETH APRN) Heart Score: C/O Chest Pain: No Risk Factors: Risk Factors: DM, Current or recent (<one month) smoker, HTN, HLP, family history of CAD, obesity. Risk Scores: Score 0 - 3: 2.5% MACE over next 6 weeks - Discharge Home Score 4 - 6: 20.3% MACE over next 6 weeks - Admit for Clinical Observation Score 7 - 10: 72.7% MACE over next 6 weeks - Early Invasive Strategies (АЛЕКСАНДР ELIZABETH APRN) Course & Med Decision Making: Course & Med Decision Making Patient presents to the emergency department for left knee pain. Patient reports that she stood up and her knee gave out. X-ray was performed that showed minimally displaced patella fracture. Patient continues to be neurovascularly intact. Patient's knee was placed in a knee immobilizer, her p ain was treated in the emergency department and she was given crutches and crutch training. Patient advised to not bear weight. Patient given referral information for orthopedic doctor. Patient educated on the rice protocol. Patient be discharged home with pain medication. I discussed with patient all findings and diagnostic testing as well as the need to follow-up with PCP for further evaluation and treatment or return to the ER if any new or worsening symptoms. Strict return precautions were also discussed at length. Patient voiced understanding and agreement with the plan. Patient is hemodynamically stable at the time of disposition. pertinent Labs and Imaging studies reviewed. (See chart for details) [] (АЛЕКСАНДР ELIZABETH APRN) Course & Med Decision Making Did not see or evaluate patient. Did not discuss patient with ANIMAL REHABILITATOR. Agree with ANIMAL REHABILITATOR's work-up and disposition per note (SHERRILL HERMAN MD) Dragon Disclaimer: Dragon Disclaimer: This electronic medical record was generated, in whole or in part, using a voice recognition dictation system. (АЛЕКСАНДР ELIZABETH APRN) Departure Departure: Impression: Primary Impression: Patella fracture Qualified Codes: S82.002A - Unspecified fracture of left patella, initial encounter for closed fracture Disposition: HOME / SELF CARE / HOMELESS Condition: GOOD Referrals: MELISSA GERBER MD (PCP) LEYDA LEYVA Jr. DO Patient Instructions: Patellar Fracture, Adult Additional Instructions: You were seen in the emergency department for a knee injury. You were noted to have a patella fracture. Please wear knee immobilizer for support. For mild pain you can take ibuprofen or naproxen. For severe pain you can take the medication you are prescribed. This medication may cause sedation so do not take when you like to be alert, driving a vehicle or with alcohol. You can also apply ice. You should not bear weight on this leg so you need to use crutches and rest. You need to follow-up with orthopedic group at [facility] by calling [phone]. You need to call them on Thursday to set up a follow-up appointment. Return to the emergency department if you develop worsening of your pain, decreased sensation in your extremity, increased swelling or decreased range of motion. Scripts Hydrocodone Bit/Acetaminophen (HYDROCODONE-APAP 5-325 ) 1 Each Tablet 1 TAB PO PRN Q6HRS PRN for PAIN for 2 Days, #8 TAB 0 Refills Prov: АЛЕКСАНДР ELIZABETH APRN 04/19/21 АЛЕКСАНДР ELIZABETH APRN Apr 19, 2021 17:40 SHERRILL HERMAN MD Apr 19, 2021 19:00
--- NOTE | 2021-04-19 17:46 | RAD ---
Exam: Left knee 3 views INDICATION: Knee injury TECHNIQUE: Frontal, lateral and oblique views the left knee Comparisons: None FINDINGS: Minimally displaced fracture of the patella. There is a large suprapatellar effusion. Diffuse osteope marcos. Moderate tricompartmental osteoarthritic change. IMPRESSION: Minimally displaced fracture of the patella not well assessed on x-ray. Electronically signed by: Otis Lindo MD (04/19/2021 5:43 PM) [facility]
[2021-04-19] MEDS ORDERED: HYDROcodone/APAP 5/325MG 1 TAB TABLET PO ONE (18:00)
[2021-04-19] MEDS ORDERED: HYDR-2155 PO (18:38)
== END 2021-04-19 19:05 | disposition home or self-care (01) ==
LOC: ER 16:55
DX: S82.002A Unspecified fracture of left patella, initial encounter for closed fracture (principal); E11.9 Type 2 diabetes mellitus without complications; I10 Essential (primary) hypertension; Z98.51 Tubal ligation status; Z87.891 Personal history of nicotine dependence; Z88.2 Allergy status to sulfonamides; X58.XXXA Exposure to other specified factors, initial encounter; Y93.89 Activity, other specified; Y92.89 Other specified places as the place of occurrence of the external cause; Y99.8 Other external cause status
CPT/HCPCS: 29505; 73562; 99283-25

== ENCOUNTER → 2021-04-22 | Outpatient (CLI) | payer MEDICARE ==
[2021-04-19 17:17] VITALS: BP 166/85
[~2021-04-22] MED LIST changes: +HYDR-2155 PO
[2021-04-22 10:26] LABS: HEMATOCRIT 30.8 % (36.0-47.0); HEMOGLOBIN 10.1 g/dL (12.0-15.5); RED BLOOD COUNT 3.34 x10^6/uL (3.50-5.40); RED CELL DISTRIBUTION WIDTH 16.8 % (11.5-14.5)
[2021-04-22 12:17] LABS: ALBUMIN 3.2 g/dL (3.4-5.0); CALCIUM 8.1 mg/dL (8.5-10.1); CREATININE 5.3 mg/dL (0.6-1.0); POTASSIUM 3.4 mmol/L (3.5-5.1); TOTAL BILIRUBIN 0.3 mg/dL (0.2-1.0); TOTAL PROTEIN 6.5 g/dL (6.4-8.2)
== END ==
LOC: SPEC 09:36
PROVIDERS: ATTEND Internal Medicine
DX: I12.0 Hypertensive chronic kidney disease with stage 5 chronic kidney disease or end stage renal disease (principal); N18.9 Chronic kidney disease, unspecified
CPT/HCPCS: 36415; 80053; 85027